=== PATIENT | female | born 1970 | race Caucasian/White ===

== ENCOUNTER 2019-02-21 22:31 | Inpatient (IN) | payer BC ==
--- OUTSIDE RECORDS SUMMARY | 2019-02-21 22:44 | XMS REPORT | Continuity of Care Document ---
:1970 External Reference #:[id number] Author Name Andrew Villatoro MD Address [address] [place] [address] Care Team Providers Name Role Phone LOGAN Acosta Care Team Information Predictive Maintenance Specialist Unavailable Payers Date Identification Numbers Payment Provider Subscriber Expires: Policy Number: [id number] Faheemus ALEGRIA Suzy Rojas Issac 2011 Group Name: [address] [address] [address] PayID: [id number] TRAVIS Solorzano [id number] Effective: 2011 Policy Number: [id number] Peter ALEGRIA Suzy Rojas Issac Group Name: [employer] [address] [address] [address] PayID: [id number] TRAVIS Solorzano [id number] Problems Active Problems Provider Date Obesity Malgorzata Sanches M.D. Onset: 10/13/2011 Family History Date Family Member(s) Observation Comments Father Hypertension Mother Hypothyroidism Paternal Grandfather 70's as of 06/27/2006 Paternal Grandfather due to CVA () Paternal Grandfather due to [place] () Maternal Grandfather Diabetes : (age 52 Years) Maternal Grandfather due to [place] Maternal Grandmother Hypothyroidism. 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 Diet Healthy, Well Balanced tends to eat better in the summer, lots of grilling Pets 1 cat Occupation bank currently working Occupation , works as banking services officer Tobacco Use Start: Unknown End: Former Cigarette Smoker Unknown ETOH Use Occasionally consumes alcohol Recreational Drug Use Never Used Drugs Allergies, Adverse Reactions, Alerts Active Allergies Reaction Severity Comments Date Penicillin 02/23/2006 Sulfa 06/27/2006 Clarithromycin 09/17/2016 Morphine Confusion Moderate 07/02/2018 Medications Active Medications SIG Qnty Indications Ordering Date Provider Metronidazole take 1 tablet by 30tabs K57.32 Andrew 02/02/2019 500mg mouth 3 times per day MD Irving Tablets for 10 days for diverticulitis Cipro take 1 tablet by 20tabs K57.32 Andrew 02/02/2019 500mg Tablets mouth every 12 hours MD Irving for 10 days for infection Fluticasone [place] Two Sprays In 16units [facility] R. 01/04/2019 Propionate Each Nostril Twice A PILAR Palmer-C 50mcg/Act Day For Allergies Suspension Montelukast Sodium Take 1 Tablet By 30tabs J30.9 Samia 07/03/2018 Mouth Once Daily Nina, 10mg Tablets Tricia Cohn Flonase use 2 sprays in each 16units J30.9 [facility] R. 11/03/2011 50mcg/Act nostril 2 times a day PILAR Palmer-C Suspension for allergies Zyrtec Allergy 1 by mouth every day Unknown 10mg Tablets Deblitane Take One Tablet By Unknown 0.35mg Mouth Every Day Tablets History Medications Deblitane Take One Tablet By 28tabs [facility] R. 11/04/2018 - 0.35mg Mouth Every Day as PILAR Palmer-C 11/05/2018 Tablets Directed Amoxicillin/Clavulana 1 tablet twice a 20tabs J01.90 Andrew 03/26/2018 - te Potassium day x 10 days. MD Irving 03/26/2018 875-125mg Tablets Doxycycline Hyclate 1 tab by mouth 20tabs J01.90 Andrew 03/26/2018 - twice a day MD Irving 07/02/2018 100mg Tablets Ventolin HFA 1-2 puffs every 8gm J06.9 Neil Carver 10/13/2017 - 4-6 hours as III, VOLUNTEER PATIENT REPRESENTATIVE-C 07/02/2018 108(90Base) mcg/Act needed for Aerosol sob/wheezing. Doxycycline 1 tab by mouth 20caps Andrew 11/20/2016 - Monohydrate twice a day for 10 MD Irving 10/13/2017 100mg days Capsules Cefuroxime Axetil one by mouth twice 20tabs Francia Hui, 09/17/2016 - 500mg a day for 10 days [facility] 11/20/2016 Tablets Clarithromycin 1 tab PO bid X 10 20tabs Francia Hui, 09/09/2016 - 500mg days [facility] 09/17/2016 Tablets Fluconazole 1 tablet by mouth 2tabs Francia Hui, 09/09/2016 - 150mg now, may repeat in [facility] 10/13/2017 Tablets 1 week if needed Clindamycin HCL 1 by mouth 4 times 40caps K04.0 Samia Wood 2015 - 150mg a day for 10 days Tricia Cohn 09/09/2016 Capsules Robitussin DM 5 milliliters by 150units Hollie Morales 11/07/2015 - mouth every 4 MD Irving 09/09/2016 100-10mg/5ML Syrup hours as needed Tesanishon Angy take 1 capsule by 30caps Hollie Morales 11/07/2015 - 100mg mouth 3 times per MD Irving 09/09/2016 Capsules day as needed for cough Azelastine HCL 2 sprays each 30ml 381.04 [facility] RMitesh 12/08/2013 - nostril twice [facility] 10/13/2017 137mcg/Patterson Solution daily for rhinitis Zyrtec-D bid Shawnti R. 12/05/2013 - Allergy/Congestion [facility] 07/02/2018 5-120mg Tablets ER 12HR Astepro 2 sprays in each 30ml 381.04 [facility] R. 12/05/2013 - 0.15% Solution nostril twice [facility] 12/08/2013 daily for allergies Ranitidine HCL Take One Tablet By 60tabs 530.81 [facility] R. 11/21/2013 - 150mg Mouth Twice A Day [facility] 11/20/2016 Tablets as Needed For Stomach Acid Diflucan 150mg by mouth 2tabs Samia Wood, 11/21/2013 - 150mg Tablets once, may repeat Lalit, R.DMitesh 11/20/2016 in one week if needed for yeast infection Cipro 1 pill po bid for 10tabs 599.0 [employer] Bailey 11/21/2013 - 250mg Tablets 5 days for urine DELANEY PalmerPAmbrocio 12/01/2013 infection Ciprofloxacin HCL 2 drops qid for QS 372.00 Francia Korina, 04/04/2013 - 0.3% 5-7 days [facility] 11/20/2016 Solution Lorena-Be take 1 tablet by 28tabs Mariam Bailey 08/01/2012 - 0.35mg Tablets mouth daily as Spencer [facility] 07/26/2018 directed Astelin one spray to each 1units 477.9 Malgorzata MMitesh 01/30/2012 - 137mcg/Patterson nostril daily Lailt Sanches 04/08/2012 Solution Singulair Take 1 Tablet By 30tabs J30.9 Samia Wood, 01/30/2012 - 10mg Tablets Mouth Once Daily Lalit R.DMitesh 07/03/2018 Patanol 1-2 drop each eye 1bottle 372.14 Mariam Bailey 11/03/2011 - 0.1% Solution 4 times daily if [facility]2012 needed for itchy/watery eyes Erlinda Allergy 1 po qd 30tabs 477.9 Mariam Bailey 11/03/2011 - 180mg DELANEY PalmerPAmbrocio 04/08/2012 Tablets Azithromycin take 2 tablets po 6tabs Malgorzata Byrnes 10/17/2011 - 250mg today and one Lalit Sanches 10/22/2011 Tablets tablet po daily days 2-5 Loratadine 1 po qd 30tabs 477.9 Malgorzata M. 10/13/2011 - 10mg Tablets Lalit Sanches 11/03/2011 Ciprofloxacin HCL 1 po bid 6tabs 599.0 Malgorzata Byrnes 06/19/2011 - 500mg Lalit Sanches 10/13/2011 Tablets Ergocalciferol 1 po twice weekly 8tabs Mariam R. 07/03/2009 - Tablets for vitamin d Spencer, VOLUNTEER PATIENT REPRESENTATIVE-C 08/02/2009 50,000Units deficiency, repeat Tablets level in 4 weeks Zithromax Tri-Slava 1 qd x 3 days december 3tabs 461.0 Stella A. 12/25/2008 - 500mg repeat after 10 Sarah, 06/15/2009 Tablets days if sx persist [facility] Nasonex two sprays in each 1units 461.0 Malgorzata M. 12/25/2008 - 50mcg/Act nares once daily Lalit Sanches 01/30/2012 Suspension Zanaflex 1 or two po at hs 40tabs Katrina Solano 12/29/2007 - 4mg Tablets prn muscle spasm Lalit Hughes 04/08/2012 Keflex 1 po tid for 14 52caps 461.0 Shawnti R. 10/01/2007 - 500mg Capsules days for sinusitis PILAR Palmer-C 06/15/2009 No Work no work due to 487.8 Shawnti R. 09/27/2007 - illness, december Spencer, VOLUNTEER PATIENT REPRESENTATIVE-C 06/15/2009 return when feeling better Micronor 1 po daily as 1Month Samia Wood, 05/25/2007 - 0.35mg marva Cohn R.DMitesh 10/13/2017 Micronor one daily to begin 1Month 388.70 Shawnti R. 06/22/2006 - 0.35mg Tablets after next menses PILAR Palmer-C 05/25/2007 Keflex one bid x 10 days 20tabs 782.1 Katrina Solano 06/22/2006 - 500mg Tablets Lalit Hughes 12/02/2006 Ciprofloxacin HCL 1 by mouth twice a Unknown - 500mg day for infection 07/26/2018 Tablets Metronidazole 1 tab by mouth Unknown - 500mg twice a day x 7 07/26/2018 Tablets days Immunizations CPT Code Status Date Vaccine Lot # [id number] Given 04/08/2012 Tdap (Adacel) [id number] Refused 07/26/2018 Influenza Virus Vaccine, Quadrivalent, 3 Yr > Quad , Preserv Free [id number] Refused 11/07/2015 Influenza Virus Vaccine, Quadrivalent, 3 Yr > Quad , Preserv Free Vital Signs Date Vital Result Comment 02/02/2019 9:42am Weight 216.00 lb Weight 97.978 kg BP Systolic 112 mmHg BP Diastolic 64 mmHg Heart Rate 80 /min Body Temperature 99.5 F Respiratory Rate 16 /min 11/05/2018 8:39am Weight 224.00 lb Weight 101.606 kg BP Systolic 110 mmHg BP Diastolic 60 mmHg Heart Rate 98 /min Body Temperature 98.9 F Respiratory Rate 16 /min Height 63.5 inches 5'3.50" BMI (Body Mass Index) 39.1 kg/m2 Last Menstrual Period 5967824 O2 % BldC Oximetry 97 % 07/26/2018 4:50pm Weight 220.00 lb Weight 99.792 kg BP Systolic 110 mmHg BP Diastolic 81 mmHg Heart Rate 88 /min Body Temperature 99.0 F Respiratory Rate 16 /min 07/02/2018 1:55pm Weight 223.00 lb Weight 101.153 kg BP Systolic 124 mmHg BP Diastolic 76 mmHg Heart Rate 100 /min Body Temperature 99.6 F Respiratory Rate 16 /min Height 63 inches 5'3" BMI (Body Mass Index) 39.5 kg/m2 Last Menstrual Period 4332004 O2 % BldC Oximetry 96 % 03/26/2018 3:52pm Weight 224.00 lb Weight 101.606 kg BP Systolic 100 mmHg BP Diastolic 72 mmHg Heart Rate 88 /min Body Temperature 99.0 F Respiratory Rate 16 /min O2 % BldC Oximetry 97 % 10/13/2017 10:36am Weight 219.00 lb Weight 99.338 kg BP Systolic 126 mmHg BP Diastolic 82 mmHg Heart Rate 97 /min Body Temperature 99.1 F ibuprofen around 10am Respiratory Rate 18 /min Height 62 inches 5'2" BMI (Body Mass Index) 40.1 kg/m2 O2 % BldC Oximetry 98 % 11/20/2016 10:19am Weight 227.00 lb Weight 102.967 kg BP Systolic 126 mmHg BP Diastolic 78 mmHg Heart Rate 106 /min Body Temperature 96.2 F Respiratory Rate 18 /min O2 % BldC Oximetry 98 % 09/09/2016 3:03pm Weight 226.00 lb Weight 102.514 kg BP Systolic 111 mmHg BP Diastolic 80 mmHg Heart Rate 104 /min Body Temperature 100.0 F O2 % BldC Oximetry 98 % 02/09/2016 9:29am Weight 222.00 lb Weight 100.699 kg BP Systolic 112 mmHg BP Diastolic 64 mmHg Heart Rate 84 /min Body Temperature 98.7 F 11/07/2015 3:35pm Weight 222.00 lb Weight 100.699 kg BP Systolic 116 mmHg BP Diastolic 86 mmHg Heart Rate 106 /min Body Temperature 100.0 F O2 % BldC Oximetry 98 % Room air 10/09/2014 3:20pm Weight 220.00 lb Weight 99.792 kg BP Systolic 110 mmHg BP Diastolic 70 mmHg Heart Rate 86 /min Body Temperature 99.2 F 12/05/2013 4:44pm Weight 216.00 lb Weight 97.978 kg BP Systolic 112 mmHg BP Diastolic 70 mmHg Heart Rate 88 /min Body Temperature 98.6 F 11/21/2013 4:38pm Weight 215.00 lb Weight 97.524 kg BP Systolic 110 mmHg BP Diastolic 78 mmHg Heart Rate 72 /min Body Temperature 99.4 F Height 63.5 inches 5'3.50" BMI (Body Mass Index) 37.5 kg/m2 04/04/2013 4:34pm Weight 209.00 lb Weight 94.802 kg BP Systolic 120 mmHg BP Diastolic 80 mmHg Heart Rate 108 /min Body Temperature 99.1 F Right Visual Acuity Distance 20/20 Left Visual Acuity Distance 20/30 Both Visual Acuity Distance 20/25 07/12/2012 3:06pm Weight 207.00 lb Weight 93.895 kg BP Systolic 104 mmHg BP Diastolic 62 mmHg Heart Rate 80 /min Body Temperature 98.8 F 04/08/2012 9:05am Weight 201.00 lb Weight 91.174 kg BP Systolic 118 mmHg BP Diastolic 74 mmHg Heart Rate 84 /min Height 63.5 inches 5'3.50" BMI (Body Mass Index) 35.0 kg/m2 01/30/2012 9:17am Weight 209.00 lb Weight 94.802 kg BP Systolic 106 mmHg BP Diastolic 80 mmHg Heart Rate 84 /min Body Temperature 99.4 F O2 % BldC Oximetry 98 % 11/03/2011 2:46pm Weight 208.00 lb Weight 94.349 kg BP Systolic 120 mmHg BP Diastolic 80 mmHg Heart Rate 80 /min Body Temperature 98.9 F 10/13/2011 1:51pm Weight 208.00 lb Weight 94.349 kg BP Systolic 96 mmHg BP Diastolic 60 mmHg Heart Rate 80 /min Body Temperature 98.2 F 06/19/2011 2:57pm Weight 203.00 lb Weight 92.081 kg BP Systolic 102 mmHg BP Diastolic 64 mmHg Heart Rate 80 /min Body Temperature 99.6 F Height 63.5 inches 5'3.50" BMI (Body Mass Index) 35.4 kg/m2 06/15/2009 8:04am Weight 198.00 lb Weight 89.813 kg BP Systolic 100 mmHg BP Diastolic 70 mmHg Heart Rate 80 /min Height 64 inches 5'4" BMI (Body Mass Index) 34.0 kg/m2 Last Menstrual Period [id number] 12/25/2008 4:17pm Weight 197.00 lb Weight 89.359 kg BP Systolic 110 mmHg BP Diastolic 70 mmHg Heart Rate 72 /min Body Temperature 98.1 F 02/21/2008 4:13pm Weight 194.00 lb Weight 87.998 kg BP Systolic 124 mmHg BP Diastolic 84 mmHg Heart Rate 80 /min Body Temperature 98.5 F Height 64.25 inches 5'4.25" BMI (Body Mass Index) 33.0 kg/m2 12/29/2007 11:51am Weight 204.00 lb Weight 92.534 kg BP Systolic 118 mmHg BP Diastolic 80 mmHg Heart Rate 80 /min Respiratory Rate 18 /min Height 64.25 inches 5'4.25" BMI (Body Mass Index) 34.7 kg/m2 10/01/2007 11:18am Weight 192.00 lb Weight 87.091 kg BP Systolic 110 mmHg BP Diastolic 60 mmHg Body Temperature 98.7 F Oral Height 64.25 inches 5'4.25" BMI (Body Mass Index) 32.7 kg/m2 09/27/2007 12:14pm Weight 196.00 lb Weight 88.906 kg BP Systolic 98 mmHg BP Diastolic 70 mmHg Heart Rate 110 /min Body Temperature 99.3 F Height 64.25 inches 5'4.25" BMI (Body Mass Index) 33.4 kg/m2 08/03/2007 8:04am Weight 193.00 lb Weight 87.545 kg BP Systolic 100 mmHg BP Diastolic 58 mmHg Heart Rate 80 /min Height 64.25 inches 5'4.25" BMI (Body Mass Index) 32.9 kg/m2 Last Menstrual Period [id number] 06/22/2006 12:08pm Weight 189.00 lb Weight 85.730 kg BP Systolic 120 mmHg BP Diastolic 70 mmHg Heart Rate 68 /min Height 64 inches 5'4" BMI (Body Mass Index) 32.4 kg/m2 Last Menstrual Period 2263299 02/23/2006 2:28pm Weight 189.00 lb Weight 85.730 kg BP Systolic 110 mmHg BP Diastolic 60 mmHg Heart Rate 80 /min Respiratory Rate 18 /min Height 64 inches 5'4" BMI (Body Mass Index) 32.4 kg/m2 Results Test Date Facility Test Result H/L Range Note Laboratory test [facility] Cytology SEE RESULT 1 finding 9 [phone] BELOW Laboratory test [facility] Hemoglobin A1c 4.8 % N 4.0-5.6 2 finding 9 [phone] (Glyco HGB) Lipid Profile [facility] Triglycerides 152 mg/dL 3 (Trig/Chol/HDL) 9 [phone] Cholesterol 212 mg/dL 4 HDL Cholesterol 48.8 mg/dL 5 LDL Cholesterol 133 mg/dL 6 CBC Auto Diff 11/05/2018 [facility] White Blood 9.8 10^3/uL N 3.5-10.8 [phone] Count Red Blood Count 4.66 10^6/uL N 3.70-4.87 Hemoglobin 14.2 g/dL N 12.0-16.0 Hematocrit 42 % High 33-41 Mean Corpuscular Volume 91 fL N 80-97 Mean Corpuscular Hemoglobin 30 pg N 27-31 Mean Corpuscular HGB Conc 34 g/dL N 31-36 Red Cell Distribution Width 14 % N 10.5-15 Platelet Count 334 10^3/uL N 150-450 Mean Platelet Volume 8.6 fL N 7.4-10.4 Abs Neutrophils 6.5 10^3/uL N 1.5-7.7 Abs Lymphocytes 2.3 10^3/uL N 1.0-4.8 Abs Monocytes 0.5 10^3/uL N 0-0.8 Abs Eosinophils 0.4 10^3/uL N 0-0.6 Abs Basophils 0.1 10^3/uL N 0-0.2 Abs Nucleated RBC 0 10^3/uL Granulocyte % 66.4 % Lymphocyte % 23.1 % Monocyte % 4.7 % Eosinophil % 4.6 % Basophil % 1.2 % Nucleated Red Blood Cells % 0.1 Comp Metabolic Panel 11/05/2018 [facility] Sodium 137 mmol/L N 135-145 [phone] Potassium 4.4 mmol/L N 3.5-5.0 Chloride 106 mmol/L N 101-111 Co2 Carbon Dioxide 22 mmol/L N 22-32 Anion Gap 9 mmol/L N 2-11 Glucose 88 mg/dL N 70-100 Blood Urea Nitrogen 13 mg/dL N 6-24 Creatinine 0.75 mg/dL N 0.51-0.95 BUN/Creatinine Ratio 17.3 N 8-20 Calcium 9.7 mg/dL N 8.6-10.3 Total Protein 6.9 g/dL N 6.4-8.9 Albumin 4.4 g/dL N 3.2-5.2 Globulin 2.5 g/dL N 2-4 Albumin/Globulin Ratio 1.8 N 1-3 Total Bilirubin 0.40 mg/dL N 0.2-1.0 Alkaline Phosphatase 77 U/L N 34-104 Alt 20 U/L N 7-52 Ast 13 U/L N 13-39 Egfr Non- 82.1 >60 Egfr 99.4 >60 7 CBC Auto 06/30/2018 [facility] White Blood 11.3 10^3/ uL High 3.5-10.8 Diff [phone] Count Red Blood Count 4.54 10^6/uL N 4.00-5.40 Hemoglobin 13.8 g/dL N 12.0-16.0 Hematocrit 41 % N 35-47 Mean Corpuscular Volume 90 fL N 80-97 Mean Corpuscular Hemoglobin 31 pg N 27-31 Mean Corpuscular HGB Conc 34 g/dL N 31-36 Red Cell Distribution Width 13 % N 10.5-15 Platelet Count 256 10^3/uL N 150-450 Mean Platelet Volume 8.5 fL N 7.4-10.4 Abs Neutrophils 8.5 10^3/uL High 1.5-7.7 Abs Lymphocytes 1.7 10^3/uL N 1.0-4.8 Abs Monocytes 0.7 10^3/uL N 0-0.8 Abs Eosinophils 0.4 10^3/uL N 0-0.6 Abs Basophils 0.1 10^3/uL N 0-0.2 Abs Nucleated RBC 0 10^3/uL Granulocyte % 75.0 % N 38-83 Lymphocyte % 15.0 % Low 25-47 Monocyte % 5.9 % N 0-7 Eosinophil % 3.1 % N 0-6 Basophil % 1.0 % N 0-2 Nucleated Red Blood Cells % 0 Inr/Protime 06/30/2018 [facility] Inr 0.83 N 0.77- 1.02 [phone] Laboratory test 06/30/2018 [facility] Partial 29.3 seconds N 26.0-36.3 finding [phone] Thrombo Time PTT Comp Metabolic 06/30/2018 [facility] Sodium 136 mmol/ L N 135-145 Panel [phone] Potassium 3.7 mmol/L N 3.5-5.0 Chloride 108 mmol/L N 101-111 Co2 Carbon Dioxide 20 mmol/L Low 22-32 Anion Gap 8 mmol/L N 2-11 Glucose 115 mg/dL High 70-100 Blood Urea Nitrogen 16 mg/dL N 6-24 Creatinine 0.83 mg/dL N 0.51-0.95 BUN/Creatinine Ratio 19.3 N 8-20 Calcium 8.9 mg/dL N 8.6-10.3 Total Protein 6.4 g/dL N 6.4-8.9 Albumin 4.2 g/dL N 3.2-5.2 Globulin 2.2 g/dL N 2-4 Albumin/Globulin Ratio 1.9 N 1-3 Total Bilirubin 0.50 mg/dL N 0.2-1.0 Alkaline Phosphatase 86 U/L N 34-104 Alt 18 U/L N 7-52 Ast 12 U/L Low 13-39 Egfr Non- 73.1 >60 Egfr 88.4 >60 8 Laboratory test 06/30/2018 [facility] Magnesium 2.0 mg/dL N 1.9-2.7 finding [phone] Amylase 25 U/L Low 29-103 Lipase 40 U/L N 11.0-82.0 C Reactive Protein 14.91 mg/L High <8.01 HCG 0.75 mIU/mL 9 Lactic Acid 0.9 mmol/L N 0.5-2.0 10 Urinalysis Profile 06/30/2018 [facility] Urine Color Straw [phone] Urine Appearance Clear Urine Specific [place] 1.003 Low 1.010-1.030 Urine pH 5.0 N 5-9 Urine Urobilinogen Negative Negative Urine Ketones Negative Negative Urine Protein Negative Negative Urine Leukocytes Negative Negative Urine Blood Negative Negative Urine Nitrite Negative Negative Urine Bilirubin Negative Negative Urine Glucose Negative Negative Flu Test A, B, Or A & B,Binaxn 11/07/2015 In House Lab Influenza A Antigen NEG (607)- - Influenza B Antigen NEG Urine Culture And 10/09/2014 [facility] Urine Culture (SEE NOTE) 11 Sensitivities [phone] Urine DIP 10/09/2014 In House Lab Specific 1.020 1.01- (607)- - [place] 1.02 Urine pH 5 5-6 Leukocytes TRACE Neg Urine Nitrites NEG Neg Total Protein, Urine NEG Neg Urine Glucose NORM Norm Urine Ketones NEG Neg Urobilinogen ORM Norm Urine Bilirubin NEG Neg Urine Blood TRACE Neg Urine Culture And 11/21/2013 [facility] Urine Culture (SEE NOTE) 12 Sensitivities [phone] Urine DIP 11/21/2013 In House Lab Specific 1.015 1.01- (607)- - [place] 1.02 Urine pH 5 5-6 Leukocytes + Neg Urine Nitrites NEG Neg Total Protein, Urine NEG Neg Urine Glucose NORM Norm Urine Ketones NEG Neg Urobilinogen NORM Norm Urine Bilirubin NEG Neg Urine Blood NEG Neg Laboratory test 07/12/2012 In House Lab Strep Screen NEG Neg finding (607)- - Laboratory test 04/08/2012 [facility] Cytology ------ ----- 13 finding [phone] ----- <SEE NOTE> CBC Auto Diff 04/08/2012 [facility] White Blood 9.4 CUMM 4.8-10.8 [phone] Count Red Cell Count 4.43 CUMM 4.2-5.4 Hemoglobin 14.4 g/dL 12.0-16.0 Hematocrit 42 % 35-47 Mean Corpuscular Volume 95 um3 79-97 Mean Corpuscular Hemoglob 33 pg High 27-31 Mean Corpuscular HGB Cone 34 g/dL 32-36 Redcell Distribution WDTH 13 % 10.5-15 Platelet Count 271 CUMM 150-450 Mean Platelet Volume 9.5 um3 7.4-10.4 Gran % 65.2 % 38-83 Lymph % 24.7 % 20-45 Mononuclear % 6.2 % 1-9 Eosinophil % 2.9 % 0-6 Basophil % 1.0 % 0-2 Abs Lymphs 2.3 1.0-4.8 Abs Mononuclear 0.6 0-0.8 Absolute Neutrophil Count 6.2 1.5-7.7 Abs Eosinophils 0.3 0-0.6 Abs Basophils 0.1 0-0.2 Comp Metabolic Panel 04/08/2012 [facility] Sodium 138 mmol/L 135-145 [phone] Potassium 4.5 mmol/L 3.5-5.0 Chloride 109 mmol/L 101-111 Co2 (Carbon Dioxide) 24.0 mmol/L 22-32 Anion Gap 5.0 mmol/L 2-11 14 Glucose 90 mg/dL 70-100 BUN 11 mg/dL 6-24 Creatinine 0.8 mg/dL 0.50-1.40 One Over Creatinine 1.25 BUN/Creatinine Ratio 13.8 8-20 Calcium 9.5 mg/dL 8.1-9.9 Total Protein 6.1 GM/DL Low 6.2-8.1 Albumin 4.1 GM/DL 3.6-5.4 Globulin 2.0 GM/DL 2-4 Albumin/Globulin Ratio 2.1 1-3 Bilirubin Total 0.9 mg/dL 0.4-1.5 15 Alkaline Phosphatase 80 U/L 30-110 Alt (SGPT) 32 U/L 14-54 Ast (Sgot) 23 U/L 12-42 eGFR Non- 78.7 > 60 eGFR 101.2 > 60 16 Lipid Profile 04/08/2012 [facility] Triglyceride 146 mg/dL 40-200 (Trig/Chol/HDL) [phone] Cholesterol 194 mg/dL Less Than 200 17 High Density Lipoprotein 39 mg/dL Low 40-60 18 Cholesterol/HDL Ratio 4.97 AVERAGE High 1-4.44 Low Density Lipoprotein 126 mg/dL High Less Than 100 19 Laboratory test 04/08/2012 [facility] TSH 1.21 MIU/ ML 0.34-5.60 finding [phone] Urine DIP 04/08/2012 In House Lab Leukocytes NEG Neg (607)- - Urine Nitrites NEG Neg Urine pH 5 5-6 Total Protein, Urine NEG Neg Urine Glucose NORM Norm Urine Ketones NEG Neg Urobilinogen NORM Norm Urine Bilirubin NEG Neg Urine Blood NEG Neg Specific [place] NA Low 1.01-1.02 Urine DIP 06/19/2011 In House Lab Leukocytes 1+ High Neg (607)- - Urine Nitrites pos Neg Urine pH 5 5-6 Total Protein, Urine neg Neg Urine Glucose norm Norm Urine Ketones neg Neg Urobilinogen norm Norm Urine Bilirubin neg Neg Urine Blood neg Neg Specific [place] na Low 1.01-1.02 Lipid Profile 06/15/2009 [facility] Triglyceride 136 mg/dL 40-200 (Trig/Chol/HDL) [phone] Cholesterol 208 mg/dL High Less Than 200 20 High Density Lipoprotein 44 mg/dL 40-60 21 Cholesterol/HDL Ratio 4.73 AVERAGE High 1-4.44 Low Density Lipoprotein 137 mg/dL High Less Than 100 22 Laboratory test 06/15/2009 [facility] TSH 1.58 MIU/ ML 0.34-5.60 finding [phone] Vitamin D.25 06/15/2009 [facility] 25-Hydroxy <4.0 ng /mL () Hydroxy [phone] Vitamin D2 25-Hydroxy Vitamin D3 24 ng/mL () 25-Hydroxy Vitamin D Total 24 ng/mL Abnormal () 23 Comp Metabolic Panel 06/15/2009 [facility] Sodium 138 mmol/L 135-145 [phone] Potassium 4.6 mmol/L 3.5-5.0 Chloride 106 mmol/L 101-111 Co2 (Carbon Dioxide) 25.0 mmol/L 22-32 Anion Gap 7.0 mmol/L 2-11 24 Glucose 82 mg/dL 70-100 25 BUN 13 mg/dL 6-24 Creatinine 0.80 mg/dL 0.50-1.40 One Over Creatinine 1.20 BUN/Creatinine Ratio 16.3 8-20 Calcium 9.3 mg/dL 8.1-9.9 26 Total Protein 5.7 GM/DL Low 6.2-8.1 Albumin 3.8 GM/DL 3.6-5.4 Globulin 1.9 GM/DL Low 2-4 Albumin/Globulin Ratio 2.0 1-3 Bilirubin Total 0.5 mg/dL 0.4-1.5 27 Alkaline Phosphatase 75 U/L 30-110 Alt (SGPT) 23 U/L 14-54 Ast (Sgot) 17 U/L 12-42 eGFR Non- 84.4 > 60 eGFR 102.2 > 60 28 Laboratory test 06/15/2009 [facility] Cytology ------ 29 finding [phone] <SEE NOTE> Urine DIP 06/15/2009 In House Lab Leukocytes NEG Neg (607)- - Urine Nitrites NEG Neg Urine pH 5 5-6 Total Protein, Urine NEG Neg Urine Glucose NORM Norm Urine Ketones NEG Neg Urobilinogen NORM Norm Urine Bilirubin NEG Neg Urine Blood NEG Neg Specific [place] N/A Low 1.01-1.02 CBC With Manual 06/15/2009 [facility] White Blood 9.9 CUMM 4.8-10.8 Diff [phone] Count Red Cell Count 4.46 CUMM 4.2-5.4 Hemoglobin 14.3 g/dL 12.0-16.0 Hematocrit 42 % 35-47 Mean Corpuscular Volume 95 um3 79-97 Mean Corpuscular Hemoglob 32 pg High 27-31 Mean Corpuscular HGB Cone 34 g/dL 32-36 Redcell Distribution WDTH 13 % 10.5-15 Platelet Count 239 CUMM 150-450 Mean Platelet Volume 8.7 um3 7.4-10.4 Polysegmented Neutrophil 74 % 38-83 Lymphocyte 24 % Low 25-47 Monocyte 2 % 0-13 Absolute Neutrophil Count 7.3 Anisocytosis SLIGHT Laboratory test 09/27/2007 In House Lab Flu Test A&B, POS finding (607)- - [facility] Laboratory test 08/03/2007 [facility] Cytology ------ ----- 30 finding [phone] ----- <SEE NOTE> CBC With 07/26/2007 [facility] Laboratory White Blood 8.3 CUMM 4.8-10. Electronic Diff [phone] Count 8 Abs Basophils 0.1 0-0.2 Abs Eosinophils 0.2 0-0.6 Absolute Neutrophil Count 4.9 1.5-7.7 Abs Lymphs 2.6 1.0-4.8 Abs Mononuclear 0.5 0-0.8 Basophil % 0.8 % 0-2 Hematocrit 41 % 35-47 Hemoglobin 13.8 g/dL 12.0-16.0 Eosinophil % 3.0 % 0-6 Gran % 58.6 % 38-83 Lymph % 31.1 % 20-45 Mean Corpuscular HGB Cone 34 g/dL 32-36 Mean Corpuscular Hemoglob 32 pg High 27-31 Mean Corpuscular Volume 96 um3 79-97 Mean Platelet Volume 9.0 um3 7.4-10.4 Mononuclear % 6.5 % 1-9 Platelet Count 298 CUMM 150-450 Red Cell Count 4.24 CUMM 4.2-5.4 Redcell Distribution WDTH 13 % 10.5-15 Comp Metabolic 07/26/2007 [facility] One Over Creatinine 1.00 Panel [phone] Anion Gap 5.0 mmol/L 2-11 31 Albumin/Globulin Ratio 1.5 1-3 Albumin 3.8 GM/DL 3.6-5.4 Alkaline Phosphatase 82 U/L 30-110 Alt (SGPT) 23 U/L 14-54 Ast (Sgot) 17 U/L 12-42 BUN 14 mg/dL 6-24 Calcium 9.1 mg/dL 8.7-10.2 Chloride 108 mmol/L 101-111 Co2 (Carbon Dioxide) 26.0 mmol/L 22-32 Globulin 2.6 GM/DL 2-4 Glucose 90 mg/dL 70-105 Potassium 4.6 mmol/L 3.5-5.0 Sodium 139 mmol/L 135-145 Bilirubin Total 0.7 mg/dL 0.4-1.5 Total Protein 6.4 GM/DL 6.2-8.1 BUN/Creatinine Ratio 14.0 8-20 Creatinine 1.0 mg/dL 0.5-1.4 Lipid Profile 07/26/2007 [facility] Cholesterol/HDL 5.00 High 1-4.44 (Trig/Chol/HDL) [phone] Ratio AVERAGE Cholesterol 200 mg/dL Less Than 200 32 Triglyceride 147 mg/dL 40-200 High Density Lipoprotein 40 mg/dL 40-60 Low Density Lipoprotein 131 mg/dL High Less Than 100 33 Gcchlu 06/22/2006 [facility] CHL On Urine NEGATIVE Negative 34 [phone] GC On Urine NEGATIVE Negative 35 Urine DIP 06/22/2006 In House Lab Leukocytes NEG Neg (607)- - Urine Nitrites NEG Neg Urine pH 5 5-6 Total Protein, Urine NEG Neg Urine Glucose NORM Norm Urine Ketones NEG Neg Urobilinogen NORM Norm Urine Bilirubin NEG Neg Urine Blood NEG Neg Specific [place] N/A Low 1.01-1.02 Laboratory test 06/22/2006 [facility] Cytology ------ <SEE 36 finding [phone] NOTE> 1 SEE RESULT BELOW Name: SUZY DAVENPORT : [address]: Mariam Palmer NP Acct: [id number] Unit: [id number] AGE: 48 Location: [facility] Re11/05/18 SEX: F Status: REG REF SPEC: [id number] NATHANIEL: 11/05/18-[address]: Mariam Palmer CLASSIFIER TENDER REQ: [id number] RECD: 11/05/18123 STATUS: SOUT _ ORDERED: TP IMAGE ANALYS, HPV/Thin Prep, HPV 16/18 GENE COMMENTS: [id number] Negative for Intraepithelial lesion or Malignancy Date Time Test Result Flag (u) Normal Range 11/05/18 1034 @ HPV RNA RFLX GE POSITIVE An Negative @ @ The high-risk HPV types detected by the assay include: 16, @ 18, 31, 33, 35, 39, 45, 51, 52, 56, 58, 59, 66, and 68. HPV GENOTYPE RESULTS Date Time Test Result Flag (u) Normal Range 11/05/18 1034 @ HPV 16 Genotype Negative Negative @ HPV 18/45 GT Negative Negative A. Ectocervical/Endocervical Specimen Adequacy: Satisfactory of evaluation Transformation zone component not identified Patient Information: HPV: High risk HPV RNA testing regardless of pap results. HPV 16/18 Genotype Reflex Actual Specimen Date: 11/05/18 Last Menstrual Date: 10/22/18 Spec Date if unknown: unknown Signed by and Reported on: JAMES Mcdonough(ASCP) 130 This Pap test was evaluated with the assistance of the edupristinePrep Test Imaging System. Due to cytologic findings at the gm video microscope, comprehensive manual rescreening by a Clinical Specialist may be required. The Pap Smear is a screening test designed to aid in the detection of premalignant and malignant conditions of the uterine cervix. It is not a diagnostic procedure and should not be used as the sole means of detecting cervical cancer. Both false- positive and false- negative reports do occur. Depending on your risk status, a Pap smear should be obtained and evaluated every 1-3 years. END OF REPORT DEPARTMENT OF PATHOLOGY, [address] [place] [address] Ernie Darling M.D. Director [facility] # [id number] 2 Therapeutic target for the treatment of diabetes mellitus patients is <7% HBA1C, and in selective patients <6.0%. Please refer to [place] Diabetes Association diabetic care guidelines for further information. 3 Desirable: <150 Borderline High: 150-199 High: 200-499 Very High: >500 4 Desirable: <200 Borderline High: 200-239 High: >239 5 Low: <40 Desirable: 40-60 High: >60 6 Desirable: <100 Near Optimal: 100-129 Borderline High: 130-159 High: 160-189 Very High: >189 7 Because ethnic data is not always readily available, this report includes an eGFR for both -Americans and non- Americans. The National Kidney Disease Education Program (NKDEP) does not endorse the use of the MDRD equation for patients that are not between the ages of 18 and 70, are , have extremes of body size, muscle mass, or nutritional status, or are non- or non-. According to the National Kidney Foundation, irrespective of diagnosis, the stage of the disease is based on the level of kidney function: Stage Description GFR(mL/min/1.73 m(2)) 1 Kidney damage with normal or decreased GFR 90 2 Kidney damage with mild decrease in GFR 60-89 3 Moderate decrease in GFR 30-59 4 Severe decrease in GFR 15-29 5 Kidney failure <15 (or dialysis) 8 Because ethnic data is not always readily available, this report includes an eGFR for both -Americans and non- Americans. The National Kidney Disease Education Program (NKDEP) does not endorse the use of the MDRD equation for patients that are not between the ages of 18 and 70, are , have extremes of body size, muscle mass, or nutritional status, or are non- or non-. According to the National Kidney Foundation, irrespective of diagnosis, the stage of the disease is based on the level of kidney function: Stage Description GFR(mL/min/1.73 m(2)) 1 Kidney damage with normal or decreased GFR 90 2 Kidney damage with mild decrease in GFR 60-89 3 Moderate decrease in GFR 30-59 4 Severe decrease in GFR 15-29 5 Kidney failure <15 (or dialysis) 9 <5.0 Negative 5.0 - 25.0 Indeterminate (Repeat testing recommended after 72 hours) >25.0 Positive Perimenopausal women can display HCG levels of up to 20 mIU/mL 10 [facility] Severe Sepsis and Septic Shock Management Bundle Measure requires all lactic acids initially measuring >2.0 mmol/L be repeated. 11 RUN DATE: 10/11/14 [facility] LAB LIVE PAGE 1 RUN TIME: [address] [place] [address] Specimen Inquiry Name: SUZY DAVENPORT : [address]: Mariam Palmer NP Acct: [id number] Unit: [id number] AGE: 44 Location: [facility] Re10/09/14 SEX: F Status: REG REF SPEC: [id number] NATHANIEL: 10/09/14-1530 [facility] [address]: Mariam Palmer NP REQ: [id number] RECD: 10/09/14 STATUS: COMP _ SOURCE: URINE SPDESC: ORDERED: Urine Culture QUERIES: Provider Requisition # [id number] Procedure Result Verified Site Urine Culture Final 10/11/14- 1046 ML Organism 1 NORMAL NEHA Champlain Count 1-10,000 (Few) CFU/ML END OF REPORT * ML=Testing performed at Main Lab DEPARTMENT OF PATHOLOGY, [facility] [employer] [place], [place] [address] Ernie Darling M.D. Director [facility] # [id number] 12 RUN DATE: 11/23/13 [facility] LAB LIVE PAGE 1 RUN TIME: 1234 [facility] [employer] [place], [place] [address] Specimen Inquiry Name: SUZY DAVENPORT : [address]: Mariam Palmer NP Acct: [id number] Unit: [id number] AGE: 43 Location: [facility] Re11/21/13 SEX: F Status: REG REF SPEC: [id number] NATHANIEL: 11/21/[address]: Mariam Palmer NP REQ: [id number] RECD: 11/21/13 STATUS: COMP _ SOURCE: URINE SPDESC: ORDERED: Urine Culture QUERIES: Med[employer] Number [id number] Procedure Result Verified Site Urine Culture Final 11/23/13- 1234 ML Organism 1 NORMAL NEHA Champlain Count 10-25,000 (Moderate) CFU/ML END OF REPORT * ML=Testing performed at Main Lab DEPARTMENT OF PATHOLOGY, [address] [place] [address] Ernie Darling M.D. Director [facility] Permit #[id number] ---- RUN DATE: 04/09/12 [facility] NMI LIVE PAGE 1 RUN TIME: 1531 Specimen Inquiry RUN USER: INTERFACE -- Name: SUZY DAVENPORT Accnic#: [id number] Status: REG REF Re04/08/12 Age/Sex: 41/F Unit#: [id number] Location: [facility] : [birth year] -- Specimen: [id number] SOUT Spec Date:04/08/12-[address]: Mariam Cardenas CLASSIFIER TENDER Spec Type: CYTOLOGY Received:04/09/12-0849 Copies to: SOURCE ECTOCERVICAL/ENDOCERVICAL Thin Prep with Reflex HPV Test PATIENT INFORMATION ACTUAL COLLECTION DATE: 04/08/12 DATE OF PRIOR SPECIMEN: 06/15/09 ADEQUACY OF SPECIMEN Satisfactory for evaluation * Transformation zone component identified * DIAGNOSIS NEGATIVE FOR INTRAEPITHELIAL LESION OR MALIGNANCY * This Pap test was evaluated with the assistance of the edupristinePrep Pap Test Imaging System. The Pap Smear is a screening test designed to aid in the detection of premalign ant and malignant conditions of the uterine cervix. It is not a diagnostic procedure a nd should not be used as the sole means of detecting cervical cancer. Both false- positiv e and false-negative reports do occur. Depending on your risk status, a Pap smear ibrahima uld be obtained and evaluated every one to three years. Initial evaluation performed by Kate LEVINE([facility]) 04/09/12 Final Interpretation electronically signed by: Kate LEVINE([facility]) 04/09/12 1531 -- -- DEPARTMENT OF PATHOLOGY, [address] [place] [address] [facility] Permit #[id number] Ernie Darling M.D. Director Horacio Cerna M.D. Paste Worker Dir mayra -- 14 Anion gap measurement may be of limited value in the presence of any alkalosis, especially in a combined acid base disorder. . 15 A metabolite of Naproxen, O-desmethylnaproxen, has been shown to interfere with the Jendrassik-Luna method for measuring total bilirubin. Samples from patients who have taken Naproxen have shown spurious elevation in total bilirubin levels. 16 Because ethnic data is not always readily available, this report includes an eGFR for both -Americans and non- Americans. The National Kidney Disease Education Program (NKDEP) does not endorse the use of the MDRD equation for patients that are not between the ages of 18 and 70, are , have extremes of body size, muscle mass, or nutritional status, or are non- or non-. According to the National Kidney Foundation, irrespective of diagnosis, the stage of the disease is based on the level of kidney function: Stage Description GFR(mL/min/1.73 m(2)) 1 Kidney damage with normal or decreased GFR 90 2 Kidney damage with mild decrease in GFR 60-89 3 Moderate decrease in GFR 30-59 4 Severe decrease in GFR 15-29 5 Kidney failure <15 (or dialysis) 17 CHOLESTEROL INTERPRETATION: Desirable: Less than 200 MG/DL Borderline-High Risk: 200-239 MG/DL High-Risk: 240 MG/DL and over 18 HDL INTERPRETATION: Undesirable: High Risk: Less than 40 MG/DL Desirable: Low Risk: Greater than 60 MG/DL 19 LDL INTERPRETATION: Low Risk Optimal Level: LDL Less than 100 MG/DL Near or Above Optimal: LDL 100-129 MG/DL Borderline High Risk: LDL 130-159 MG/DL High Risk: LDL 160-189 MG/DL Very High Risk: LDL Greater than 189 MG/DL 20 CHOLESTEROL INTERPRETATION: Desirable: Less than 200 MG/DL Borderline-High Risk: 200-239 MG/DL High-Risk: 240 MG/DL and over 21 HDL INTERPRETATION: Undesirable: High Risk: Less than 40 MG/DL Desirable: Low Risk: Greater than 60 MG/DL 22 LDL INTERPRETATION: Low Risk Optimal Level: LDL Less than 100 MG/DL Near or Above Optimal: LDL 100-129 MG/DL Borderline High Risk: LDL 130-159 MG/DL High Risk: LDL 160-189 MG/DL Very High Risk: LDL Greater than 189 MG/DL 23 Interpretation: 10-24 (mild to moderate deficiency) -- REFERENCE VALUE -- 25-HYDROXY D TOTAL (D2+D3) Optimum levels in the normal population are 25-80 Test Performed by: [facility] Dpt of Lab Med and Pathology [address] [place] [address] Butter Maker: Alexander Martinez III, M.D. 24 Anion gap measurement may be of limited value in the presence of any alkalosis, especially in a combined acid base disorder. . 25 Note change in reference range as of 04/06/08. The change was based on recommendations from the [place] Diabetes Association. 26 Please note change in reference range effective 08 . 27 A metabolite of Naproxen, O-desmethylnaproxen, has been shown to interfere with the Jendrassik-Luna method for measuring total bilirubin. Samples from patients who have taken Naproxen have shown spurious elevation in total bilirubin levels. 28 Because ethnic data is not always readily available, this report includes an eGFR for both -Americans and non- Americans. The National Kidney Disease Education Program (NKDEP) does not endorse the use of the MDRD equation for patients that are not between the ages of 18 and 70, are , have extremes of body size, muscle mass, or nutritional status, or are non- or non-. According to the National Kidney Foundation, irrespective of diagnosis, the stage of the disease is based on the level of kidney function: Stage Description GFR(mL/min/1.73 m(2)) 1 Kidney damage with normal or decreased GFR 90 2 Kidney damage with mild decrease in GFR 60-89 3 Moderate decrease in GFR 30-59 4 Severe decrease in GFR 15-29 5 Kidney failure <15 (or dialysis) 29 ---- RUN DATE: 06/19/09 [facility] NMI LIVE PAGE 1 RUN TIME: 804 Specimen Inquiry RUN USER: INTERFACE -- Name: SUZY DAVENPORT Accnic#: [id number] Status: REG REF Re06/15/09 Age/Sex: 39/F Unit#: [id number] Location: [facility] : [birth year] -- Specimen: [id number] SOUT Spec Date: 06/15/[address]: Mariam chan NP Spec Type: CYTOLOGY Received: 06/18/09-55 Copies to: SOURCE ECTOCERVICAL/ENDOCERVICAL Thin Prep with Reflex HPV Test PATIENT INFORMATION ACTUAL COLLECTION DATE: 06/15/09 LAST MENSTRUAL PERIOD: 05/18/09 ADEQUACY OF SPECIMEN Satisfactory for evaluation * Transformation zone component identified * DIAGNOSIS NEGATIVE FOR INTRAEPITHELIAL LESION OR MALIGNANCY * This Pap test was evaluated with the assistance of the ThinPrep Pap Test Imaging System. The Pap Smear is a screening test designed to aid in the detection of premalign ant and malignant conditions of the uterine cervix. It is not a diagnostic procedure a nd should not be used as the sole means of detecting cervical cancer. Both false- positiv e and false-negative reports do occur. Depending on your risk status, a Pap smear ibrahima uld be obtained and evaluated every one to three years. Initial evaluation performed by Kate LEVINE([facility]) 06/18/09 Final Interpretation electronically signed by: Kate LEVINE(AS[facility]) 06/19/09 0805 -- -- DEPARTMENT OF PATHOLOGY, [address] [place] [address] [facility] Permit #[id number] Ernie Darling M.D. Director Horacio Cerna M.D. Paste Worker Dir mayra -- 30 ---- RUN DATE: 08/06/07 [facility] NMI LIVE PAGE 1 RUN TIME: 1041 Specimen Inquiry RUN USER: INTERFACE [id number] SUZY DAVENPORT 37/F <REG REF 08/03> ([id number]) Beto Goldstein NP -- Specimen: [id number] SOUT Spec Date: 08/03/[address]: Mariam chan NP Spec Type: CYTOLOGY Received: 08/04/07-1108 Copies to: SOURCE ECTOCERVICAL/ENDOCERVICAL Thin Prep with Reflex HPV Test PATIENT INFORMATION ACTUAL COLLECTION DATE: 08/03/07 LAST MENSTRUAL PERIOD: 07/11/07 ADEQUACY OF SPECIMEN Satisfactory for evaluation * Transformation zone component identified * DIAGNOSIS NEGATIVE FOR INTRAEPITHELIAL LESION OR MALIGNANCY * This Pap test was evaluated with the assistance of the edupristinePrep Pap Test Imaging System. The Pap Smear is a screening test designed to aid in the detection of premalign ant and malignant conditions of the uterine cervix. It is not a diagnostic procedure a nd should not be used as the sole means of detecting cervical cancer. Both false- positive and false-negative reports do occur. Depending on your risk status, a Pap smear ibrahima uld be obtained and evaluated every one to three years. Final Interpretation electronically signed by: Kate LEVINE([facility]) 08/06/07 1040 -- -- DEPARTMENT OF PATHOLOGY, [address] [place] [address] [facility] Permit #[id number] Ernie Darling M.D. Director of [employer] -- 31 Anion gap measurement may be of limited value in the presence of any alkalosis, especially in a combined acid base disorder. . 32 Classification: Borderline High . 33 CALCULATED LDL APPROXIMATES THE VALUE OF A DIRECT LDL MEASUREMENT. Classification: Borderline High . 34 . A negative urine result for a female patient who is clinically suspected of having a chlamydial or gonococcal infection does not rule out the presence of C.trachomatis or N.gonorrhoeae in the urogenital tract. Testing of an endocervical specimen is recommended in such cases. As well, a negative urine result for N. gonorrhoeae from a female has a lower negative predictive value than does an endocervical swab. . 35 . A negative urine result for a female patient who is clinically suspected of having a chlamydial or gonococcal infection does not rule out the presence of C.trachomatis or N.gonorrhoeae in the urogenital tract. Testing of an endocervical specimen is recommended in such cases. As well, a negative urine result for N. gonorrhoeae from a female has a lower negative predictive value than does an endocervical swab. . 36 ---- RUN DATE: 06/26/06 [facility] LIVE PAGE 1 RUN TIME: 0806 Specimen Inquiry RUN USER: INTERFACE [id number] SUZY DAVENPORT 36/F <REG REF 06/22> ([id number]) RSP Katrina Hughes MD. -- Specimen: [id number] SOUT Spec Date: 06/22/[address]: Katrina lord MD Spec Type: CYTOLOGY Received: 06/23/06-1215 Copies to: SOURCE ECTOCERVICAL/ENDOCERVICAL Thin Prep with Reflex HPV Test PATIENT INFORMATION ACTUAL COLLECTION DATE: 06/22/06 ? NO POST MENOPAUSAL? No HYSTERECTOMY? No PREVIOUS ABNORMAL PAP SMEARS No ADEQUACY OF SPECIMEN Satisfactory for evaluation * Transformation zone component not identified * DIAGNOSIS NEGATIVE FOR INTRAEPITHELIAL LESION OR MALIGNANCY * The Pap Smear is a screening test designed to aid in the detection of premalign ant and malignant conditions of the uterine cervix. It is not a diagnostic procedure an d should not be used as the sole means of detecting cervical cancer. Both false-positive and false-negative reports do occur. Depending on your risk status, a Pap smear ibrahima uld be obtained and evaluated every one to three years. Signed Electronically signed Kate LEVINE([facility]) 06/26/06 -- -- DEPARTMENT OF PATHOLOGY, [address] [place] [address] [facility] Permit #[id number] John Barney II, M.D. Director Ernie SudLalit bear irector -- Encounters Type Date Location Provider Dx Diagnosis Office Visit 11/05/2018 Main Office Mariam Palmer, Z00.00 Encntr for general 8:45a VOLUNTEER PATIENT REPRESENTATIVE-C adult medical exam w/o abnormal findings Office Visit 07/26/2018 Main Office Andrew Villatoro Z12.31 Encntr screen 5:00p mammogram for malignant neoplasm of breast M26.602 Left temporomandibular joint disorder, unspecified Office Visit 07/02/2018 2:00p Main Office Mariam Bailey K57.32 Dvtrcli of lg int Storm, VOLUNTEER PATIENT REPRESENTATIVE-C w/o perforation or abscess w/o bleeding Office Visit 03/26/2018 3:45p Main Office Andrew Bosch01.90 Acute sinusitisIrving MD unspecified Office Visit 10/13/2017 10:30a Main Office Neil Carver J06.9 Acute upper III, VOLUNTEER PATIENT REPRESENTATIVE-C respiratory infection, unspecified Office Visit 11/20/2016 10:15a Main Office Andrew Dhillon.Rosemarie Acute sinusIrving grover MD unspecified Office Visit 09/09/2016 3:00p Main Office Hior Cunningham01.90 Acute sinusitis, VOLUNTEER PATIENT REPRESENTATIVE-C unspecified Office Visit 02/09/2016 9:30a Main Office Samia Wood K04.0 Pulplenore Cohn, RPrudencio Office Visit 11/07/2015 3:45p Main Office Andrew Villatoro MD Office Visit 10/09/2014 3:15p Main Office Mariam Bailey 788.1 Dysuria Storm, VOLUNTEER PATIENT REPRESENTATIVE-C 564.09 Constipation Other Office Visit 12/05/2013 4:45p Main Office Mariam Palmer, 381.04 Otitis Media VOLUNTEER PATIENT REPRESENTATIVE-C Allergic Serous Acute Office Visit 11/21/2013 4:45p Main Office Mariam Palmer, 599.0 UTI Urinary Tract VOLUNTEER PATIENT REPRESENTATIVE-C Infection Site Not Spec 719.42 Pain Joint Upper Arm 530.81 Esophageal Reflux 381.04 Otitis Media Allergic Serous Acute Office Visit 04/04/2013 4:30p Main Office Francia Hui, 372.00 Conjunctivitis Acute VOLUNTEER PATIENT REPRESENTATIVE-C Unspec Office Visit 07/12/2012 3:00p Main Office Francia Hui, 465.9 URI Upper VOLUNTEER PATIENT REPRESENTATIVE-C Respiratory Infections Acute Unspec Sites Office Visit 04/08/2012 9:00a Main Office Mariam Bailey V70.0 Examination General Storm, VOLUNTEER PATIENT REPRESENTATIVE-C Medical Routine AT Health Care Facility 477.9 Rhinitis Allergic Cause Unspec V77.91 Screening For Lipoid Disorders V72.62 Laboratory Exam Ordered as Part Of Routine General Med Exam V06.1 Rneqifvoat-Qiwdzxs-Xvsktnag Combined (DTaP) Office Visit 01/30/2012 9:15a Main Office Malgorzata Byrnes 477.9 Rhinitis Allergic Lalit Sanches Cause Unspec Office Visit 11/03/2011 2:45p Main Office Mariam Plamer, 477.9 Rhinitis Allergic VOLUNTEER PATIENT REPRESENTATIVE-C Cause Unspec 372.14 Conjunctivitis Chronic Allergic Other Office Visit 10/13/2011 2:00p Main Office Malgorzata Byrnes 477.9 Rhinitis Allergic Lalit Sanches Cause Unspec Office Visit 06/19/2011 2:45p Main Office Malgorzata Byrnes 599.0 UTI Urinary Tract Lalit Sanches Infection Site Not Spec Office Visit 06/15/2009 8:00a Main Office Mariam Palmer, V72.31 Routine Surveillance Analyst VOLUNTEER PATIENT REPRESENTATIVE-C Examination 278.00 Obesity Unspec V70.0 Examination General Medical Routine AT Health Care Facility V77.91 Screening For Lipoid Disorders V25.09 Contraceptive Management Other Office Visit 12/25/2008 3:45p Main Office Stella Thurston 461.0 Sinusitis Acute Sarah, F.N.P.C. Maxillary Office Visit 02/21/2008 4:15p Main Office Mariam Palmer, 692.9 Dermatitis Unspec VOLUNTEER PATIENT REPRESENTATIVE-C Cause Due To Spec Agents Other Office Visit 12/29/2007 11:45a Main Office Katrina Solano 724.5 Backache Unspec Lalit Hughes 783.1 Weight Gain Abnormal Office Visit 10/01/2007 11:00a Main Office Mariam Bailey 461.0 Sinusitis Acute Storm, VOLUNTEER PATIENT REPRESENTATIVE-C Maxillary Office Visit 09/27/2007 11:45a Main Office Mariam Bailey 487.8 Influenza W/ Other Storm, VOLUNTEER PATIENT REPRESENTATIVE-C Manifestations Office Visit 08/03/2007 8:00a Main Office Mariam Bailey V72.31 Routine Surveillance Analyst Storm, VOLUNTEER PATIENT REPRESENTATIVE-C Examination 388.70 Otalgia & Earache Unspec 278.00 Obesity Unspec V76.2 Screening Malignant Neoplasm Cervix Office Visit 06/22/2006 12:00p Main Office Katrina Solano V72.31 Routine Surveillance Analyst Lalit Hughes Examination V70.0 Examination General Medical Routine AT Health Care Facility 388.70 Otalgia & Earache Unspec V25.09 Contraceptive Management Other 305.1 Tobacco Use Disorder 782.1 Rash & Other Nonspec Skin Eruption Office Visit 02/23/2006 2:15p Main Office Dakota Hoover, 388.70 Otalgia & Earache M.DMitesh Unspec Plan of Treatment 02/02/2019 - Andrew Villatoro MDK57.32 Diverticulitis of large intestine without perforation or absNew Medication:Metronidazole 500 mg - take 1 tablet by mouth 3 times per day for 10 days for diverticulitisCipro 500 mg - take 1 tablet by mouth every 12 hours for 10 days for infectionComments:If her symptoms do not resolve quickly, she should do a course of Cipro and Flagyl.If she is having smoldering repeated episodes of diverticulitis, this is not something that should be ignored.She never had a follow-up colonoscopy following her initial serious episode of diverticulitis. She should see GI.Follow up:Refer to NELI91.8 Other hypertrophic disorders of the skinComments: She has a number of irritated acrochordons around her neck, armpits, etc. She will come back and wewill address them surgically.Follow up:return for [facility] [place]66.92 Otitis media, unspecified, left earComments:She has some serous effusion behind the left tympanic membrane. I do not see any sign of a bacterial infection. She will continue to use Flonase and allergy treatments and try to get the ear to drain.R87.820 Cervical low risk human papillomavirus ( HPV) Dna test positiComments:I misinterpreted the result as positive for HPV type 16, but on review I was able to discover its actually negtive. I informed her before she left about this error, we discussed it.Follow up:Cancel [facility] referral
[2019-02-21] MEDS ORDERED: NS 0.9% 1000 ML** 1,000 ML IV ONE (23:01)
--- NOTE | 2019-02-21 23:24 | ED ---
GI/ HPI - HPI Summary HPI Summary: 48 year old female presents with left lower quadrant pain for the past couple hours. She has history of diverticulitis and it feels same. She states has had diarrhea today. admits to nausea but no vomiting. No fevers. She denies any urinary symptoms. She states she took a dose of Cipro and Flagyl today that had for her diverticulitis in the past. She states she took some ibuprofen which helped with the pain. Pain does not radiate anywhere. denies any chest pressure or shortness of breath. No medical conditions. - History of Current Complaint Chief Complaint: EDAbdPain Time Seen by Provider: 02/21/19 22:55 Stated Complaint: PAIN LT SIDE /DIARRHEA PER PT Pain Intensity: 6 - Allergy/Home Medications Allergies/Adverse Reactions: Allergies Allergy/AdvReac Type Severity Reaction Status Date / Time Penicillins AdvReac Unknown Verified 02/21/19 22:34 Reaction Details Sulfa (Sulfonamide AdvReac Headache Verified 02/21/19 22:34 Antibiotics) PMH/Surg Hx/FS Hx/Imm Hx Endocrine/Hematology History: Denies: Hx Sickle Cell Disease Cardiovascular History: Denies: Hx Myocardial Infarction GI History: Denies: Hx Diverticulosis Sensory History: Denies: Hx Legally Blind, Hx Deafness Opthamlomology History: Denies: Hx Legally Blind Psychiatric History: Denies: Hx Autism - Cancer History Hx Chemotherapy: No Hx Radiation Therapy: No Infectious Disease History: No Infectious Disease History: Denies: Traveled Outside the [place] in Last 30 Days - Family History Known Family History: Positive: Cardiac Disease, Diabetes - Social History Alcohol Use: Occasionally Substance Use Type: Reports: None Smoking Status (MU): Never Smoked Tobacco Review of Systems Negative: Fever Negative: Chest Pain Negative: Shortness Of Breath Positive: Abdominal Pain, Diarrhea, Nausea. Negative: Vomiting All Other Systems Reviewed And Are Negative: Yes Physical Exam Triage Information Reviewed: Yes Vital Signs On Initial Exam: Initial Vitals Temp Pulse Resp BP Pulse Ox 98.6 F 78 16 145/66 100 02/21/19 22:32 02/21/19 22:32 02/21/19 22:32 02/21/19 22:32 02/21/19 22:32 Vital Signs Reviewed: Yes Appearance: Positive: Well-Appearing Skin: Positive: Warm, Dry Head/Face: Positive: Normal Head/Face Inspection Eyes: Positive: Normal, Conjunctiva Clear ENT: Positive: Pharynx normal Respiratory/Lung Sounds: Positive: Clear to Auscultation, Breath Sounds Present Cardiovascular: Positive: Normal, RRR Abdomen Description: Positive: Other: - tenderness in LLQ Bowel Sounds: Positive: Present Musculoskeletal: Positive: Normal Neurological: Positive: Normal Psychiatric: Positive: Normal Diagnostics - Vital Signs Vital Signs Temp Pulse Resp BP Pulse Ox 02/21/19 22:32 98.6 F 78 16 145/66 100 - Laboratory Result Diagrams: 02/21/19 23:20 02/21/19 23:20 Lab Statement: Any lab studies that have been ordered have been reviewed, and results considered in the medical decision making process. - CT abd CT Interpretation Completed By: Radiologist Summary of CT Findings: IMPRESSION: Acute perforated colonic diverticulitis at the junction of the distal. descending colon and proximal sigmoid colon in the left lower quadrant of the. abdomen, with a 1.6 cm x 1.6 cm x 1.3 cm intramural abscess in the posterior. wall of the proximal sigmoid colon, free air predominantly in the left lower. quadrant of the abdomen, and a small amount of portal venous gas in the. superior medial segment 4A of the left hepatic lobe. Re-Evaluation - Re-Evaluation First Eval Re-Evaluation Time: 00:53 Change: Worse Comment: pain worst, patient states can not take morphine, will try toradol Second Eval Re-Evaluation Time: 02:56 Change: Improved Comment: patient is heistant to take any pain meds, discussed will try dilaudid as did not like morphine in past. Third Eval Re-Evaluation Time: 03:20 Comment: patient not tachycardia, no peritoneal signs on exam. appears comfortable GIGU Course/Dx - Course Course Of Treatment: 48 year old female presents with left lower quadrant pain for the past couple hours. She has history of diverticulitis and it feels same. She states has had diarrhea today. admits to nausea but no vomiting. No fevers. She denies any urinary symptoms. She states she took a dose of Cipro and Flagyl today that had for her diverticulitis in the past. She states she took some ibuprofen which helped with the pain. Pain does not radiate anywhere. denies any chest pressure or shortness of breath. No medical conditions. On exam tenderness left lower quadrant. Afebrile. wbc 13. crp normal. urine shows uti. CT shows perforated diverticulitis with free air and abscess. started patient on cipro and flagyl due to PCN allergy. patient is feeling better after toradol. discussed with dr ozuna who will admit. - Diagnoses Differential Diagnoses - Female: Diverticulitis, Gastroenteritis (Viral), Urinary Tract Infection Provider Diagnoses: Perforation of intestine due to diverticulitis of gastrointestinal tract Discharge - Sign-Out/Discharge Documenting (check all that apply): Patient Departure - Discharge Plan Condition: Stable Disposition: ADMITTED TO [facility] Referrals: Mariam Palmer PREFITTER [Primary Care Provider] - - Billing Disposition and Condition Condition: STABLE Disposition: Admitted to [facility]
[2019-02-21 23:28] LABS: ABS Basophils 0.1 10^3/ul (0-0.2); ABS Eosinophils 0.4 10^3/ul (0-0.6); ABS Lymphocytes 1.7 10^3/ul (1.0-4.8); ABS Monocytes 0.6 10^3/ul (0-0.8); ABS Neutrophils 10.3 10^3/ul (1.5-7.7); Hematocrit 42 % (35-47); Hemoglobin 13.9 g/dL (12.0-16.0); Lymphocyte % 13.2 %; Mean Corpuscular HGB Conc 34 g/dL (31-36); Mean Corpuscular Hemoglobin 30 pg (27-31); Mean Corpuscular Volume 89 fL (80-97); Mean Platelet Volume 8.4 fL (7.4-10.4); Platelet Count 308 10^3/uL (150-450); Red Blood Count 4.64 10^6 /uL (3.70-4.87); Red Cell Distribution Width 14 % (10-15); White Blood Count 13.2 10^3/uL (3.5-10.8)
[2019-02-21 23:47] LABS: Albumin 4.3 g/dL (3.2-5.2); Albumin/Globulin Ratio 1.6 (1-3); BUN/Creatinine Ratio 14.8 (8-20); C Reactive Protein 6.04 mg/L (<8.01); Calcium 9.5 mg/dL (8.6-10.3); EGFR African American 90.9 (>60); EGFR Non-African American 75.2 (>60); Globulin 2.7 g/dL (2-4); Total Bilirubin 0.3 mg/dL (0.2-1.0)
[2019-02-22 00:12] LABS: Urine Appearance Cloudy; Urine Bacteria 2+ (Absent); Urine Bilirubin Negative (Negative); Urine Blood 1+ (Negative); Urine Color Straw; Urine Glucose Negative (Negative); Urine Ketones Negative (Negative); Urine Nitrite Negative (Negative); Urine Protein Negative (Negative); Urine Red Blood Cell 2+(6-10/hpf) (Absent); Urine Specific Gravity 1.004 (1.010-1.030); Urine Squamous Epithelial Cell Present (Absent); Urine Urobilinogen Negative (Negative); Urine White Blood Cell 3+(>20/hpf) (Absent)
[2019-02-22] MEDS ORDERED: Iohexol 300* (CONTRAST) 10 ML SDV IV ONE (00:23)
[2019-02-22] MEDS ORDERED: Ketorolac INJ* 30 MG/ML 1 ML VIAL IV PUSH ONE (00:53)
[2019-02-22] MEDS ORDERED: Ciprofloxacin 400MG IVPREMIX(* 400 MG/200 ML BAG IVPB ONE (02:52)
[2019-02-22] MEDS ORDERED: HYDROmorphone INJ1* 1 MG/ML SYRINGE IV SLOW PU ONE (02:52)
[2019-02-22] MEDS ORDERED: metroNIDAZOLE IV 500 MG/100ML* 500 MG/100 ML BAG IVPB ONE (02:53)
[2019-02-22] MEDS ORDERED: Ondansetron INJ* 2 MG/ML VIAL IV ONE (02:56)
[2019-02-22] MEDS ORDERED: NS 0.9% 1000 ML** 1,000 ML IV ONE ×2 (03:02→06:27)
[2019-02-22] MEDS: HYDROmorphone INJ1* 1 MG/ML SYRINGE IV SLOW PU PRN ×7 (05:47→23:52)
[2019-02-22] MEDS: Lactated Ringers 1000 ML Bag* 1,000 ML IV SCH ×3 (05:50→23:56)
--- NOTE | 2019-02-22 09:27 | HP ---
CC: Mariam Palmer NP, [facility] * HISTORY AND PHYSICAL: DATE OF ADMISSION: 02/22/19 CHIEF COMPLAINT: Left lower quadrant abdominal pain and diverticulitis. HISTORY OF PRESENT ILLNESS: Ms. Suzy Davenport is a 48-year-old woman without significant past medical history other than obesity, who presented to the emergency room early this morning with left lower quadrant abdominal discomfort. She has a history of diverticular disease and was treated with oral antibiotics as an outpatient for sigmoid diverticulitis in June 2018. At this time, she had presented to the emergency room and a CAT scan was obtained, which showed findings consistent with sigmoid diverticulitis as well as a few small bubbles of extraluminal air. She said she did well after this episode. She states that she has had several intermittent episodes of left lower quadrant abdominal pain over the past several months, which may last several days, but she has not been treated with antibiotics. More recently she said she has had some discomfort over the past week or so, may be longer, of some left lower quadrant pain, which she describes as pressure. Last night; however, after she returned home from work and ate a regular dinner , she developed some pressure in her lower abdomen mainly on the left, which she described as cramping and pressure. She had several episodes of loose nonbloody diarrhea. She had no generalized abdominal discomfort, fevers, shakes or chills. When pain persisted, she presented to the emergency room. She was noted to be afebrile with initial heart rate of 78. Blood pressure was 145/66. She refused pain medicine. She is noted to have a white blood cell count of 13,000 with slight increase in neutrophils. Her chemistry values and liver transaminases were all unremarkable and she had a lactic acid of 1.1 and C -reactive protein of 6.04. She underwent a CT scan of the abdomen and pelvis. I did review these images. This showed findings consistent with acute perforated colonic sigmoid colon diverticulitis at the junction of the distal descending colon and proximal sigmoid colon with a small 1.6 x 1.3 cm intramural abscess. There was free fluid around the site of the apparent perforation. There was a trace amount of free fluid noted as well as some very small bubbles in the mesentery. Also noted was 2 small bubbles of air in the portal venous system in the left hepatic lobe. This was difficult to see. There was no evidence of remote free air, with generalized free fluid or other acute abnormality. After being seen in surgical consultation, she has been admitted to the surgical floor for treatment of her perforated diverticulitis. She states that her pain is only in the left lower quadrant. She has not had generalized abdominal pain. She has no nausea. She has been having no difficulty urinating. She states she has never undergone a colonoscopy; however, she was scheduled to see a java front end web developer through her primary care provider referral and this is yet to be scheduled. She has no family history of colon cancer. PAST MEDICAL HISTORY: Unremarkable. PAST SURGICAL HISTORY: Laparoscopic cholecystectomy. MEDICATIONS: None. ALLERGIES: To PENICILLINS and SULFA. SOCIAL HISTORY: She is . She has 1 grown daughter. She is a remote smoker, but has not smoked in the last 10 years. She drinks alcohol on a very rare social basis. She denies use of illicit drugs. 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 REVIEW OF SYSTEMS: Cerebrovascular: No dizziness or visual disturbances. Cardiovascular: No chest pain, shortness of breath. Pulmonary: No wheezing or hemoptysis or asthma. GI: As per above. She gives no blood per rectum or melena. She has had no weight loss. Diverticular history as above. : No urgency or hematuria. PHYSICAL EXAMINATION GENERAL: She is a mildly obese woman, sitting upright in bed, appears to be in no apparent distress. She is awake, alert, and conversive, and quite pleasant. VITAL SIGNS: She is afebrile. Pulse rate of 85, blood pressure 105/61. HEENT: Her sclerae are anicteric. Oral mucosa is slightly dry. LUNGS: Clear to auscultation with normal respiratory effort. HEART: Regular rate and rhythm without murmurs, rubs, or gallops. ABDOMEN: Soft and nondistended. She has laparoscopic upper abdominal incisions without hernia. She had diminished bowel sounds throughout. She has tenderness in her left lower quadrant with some voluntary guarding and very localized peritoneal irritation. There is no generalized peritoneal irritation or discomfort and her abdomen is quite soft without tympany or distention. PSYCHIATRIC: She is awake, alert, and oriented x3. She has normal judgment and insight. LABORATORY DATA: Laboratory value as per above. Also, noted was a urinalysis that showed 3+ white cells, 2+ red cells, and 3+ leukocyte esterase with bacteria present. Her culture will be pending. IMPRESSION: Acute on chronic sigmoid diverticulitis with apparent perforation with localized extraluminal air as well as very small abscess. She has localized left lower quadrant abdominal pain and mild elevation of her white blood cell count, but a normal CRP. Also noted was a small foci of air apparent in the portal venous system of the left lobe of the liver, and this was quite small. I reviewed the findings with her in great detail. She had some slight tachycardia while in the emergency room and with her mild leukocytosis, she does achieve sepsis criteria. She gives a history of several days of abdominal discomfort with worsening yesterday and I suspect with the small abscess and the induration and thickening of the sigmoid colon that this perhaps has been a process going on for the last several days with a more acute on chronic presentation last night. She has no signs of generalized peritonitis and the portal venous air bubble is most likely from the perforation. At this point, I feel that we can attempt nonoperative management with IV antibiotics, bowel rest, and IV fluid resuscitation. The next 24 to 48 hours will be crucial and we will follow her clinical course carefully and if there is any deterioration in the clinical status or development of peritonitis, she will require laparotomy with colectomy and probable colostomy and I explained this to her. There also is the possibility of repeat CT scan to follow for abscess with subsequent percutaneous drainage as well. PLAN: 1. She will be admitted to surgical service at the short stay unit. 2. She will be kept n.p.o. 3. She has been started on ciprofloxacin and Flagyl as she is allergic to PENICILLINS. 4. Ice chips will be allowed. 5. Repeat laboratory values will be obtained in the morning. [id number]/[facility] #: [id number] [facility] MEDICAL CENTERPatricia
[2019-02-22] MEDS: metroNIDAZOLE IV 500 MG/100ML* 500 MG/100 ML BAG IVPB SCH ×2 (10:56→18:20)
[2019-02-22] MEDS: Ondansetron INJ* 2 MG/ML VIAL IV PRN (11:08)
[2019-02-22] MEDS: Ciprofloxacin 400MG IVPREMIX(* 400 MG/200 ML BAG IVPB SCH (15:48)
[2019-02-23] MEDS: metroNIDAZOLE IV 500 MG/100ML* 500 MG/100 ML BAG IVPB SCH ×3 (03:24→18:47)
[2019-02-23] MEDS: Ciprofloxacin 400MG IVPREMIX(* 400 MG/200 ML BAG IVPB SCH ×2 (04:47→16:30)
[2019-02-23 05:16] LABS: ABS Eosinophils 0.1 10^3/ul (0-0.6); ABS Lymphocytes 1.1 10^3/ul (1.0-4.8); ABS Monocytes 0.8 10^3/ul (0-0.8); Eosinophil % 1.2 %; Hematocrit 34 % (35-47); Hemoglobin 11.5 g/dL (12.0-16.0); Mean Corpuscular HGB Conc 34 g/dL (31-36); Mean Corpuscular Hemoglobin 30 pg (27-31); Mean Corpuscular Volume 90 fL (80-97); Mean Platelet Volume 8.5 fL (7.4-10.4); Platelet Count 227 10^3/uL (150-450); Red Cell Distribution Width 14 % (10-15)
[2019-02-23 05:48] LABS: BUN/Creatinine Ratio 15.9 (8-20); Calcium 8.3 mg/dL (8.6-10.3); EGFR African American 109.4 (>60); EGFR Non-African American 90.4 (>60); Potassium 3.6 mmol/L (3.5-5.0)
[2019-02-23] MEDS: HYDROmorphone INJ1* 1 MG/ML SYRINGE IV SLOW PU PRN ×4 (06:19→22:43)
--- NOTE | 2019-02-23 09:12 | PN ---
Progress Note - Progress Note Date of Service: 02/23/19 SOAP: Subjective: Feels better this morning, slept better and now with less LLQ pain Reduced pain meds last 12 hours No N/V, no flatus Ambulating in halls, voiding well Objective: Temp Pulse Resp BP Pulse Ox 98.5 F 73 14 102/55 94 02/23/19 07:29 02/23/19 07:29 02/23/19 07:29 02/23/19 07:29 02/23/19 07:29 Intake & Output 02/21/19 02/22/19 02/23/19 02/24/19 06:59 06:59 06:59 06:59 Intake Total 20 3235 Output Total 1550 Balance 20 1685 Weight 215 lb Intake: IV Fluids 2951 LR 1951 NS (0.9%) 1000 IVPB 104 ABX - FLAGYL 104 Oral 20 180 Output: Urine 1550 Other: Estimated Void Medium # Bowel Movements 0 # Voids 1 PEX: Comfortable Lungs clear Cor is RRR Abd is soft and slightly distended. Minimal bowel sounds. Tender in LLQ without mass, less discomfort, no generalized pain or peritoneal irritation. Ext without edema Laboratory Results - last 24 hr 02/23/19 02/23/19 04:46 04:46 WBC 12.0 H RBC 3.80 Hgb 11.5 L Hct 34 L MCV 90 MCH 30 MCHC 34 RDW 14 Plt Count 227 MPV 8.5 Neut % (Auto) 83.2 Lymph % (Auto) 9.0 [place] % (Auto) 6.3 Eos % (Auto) 1.2 Baso % (Auto) 0.3 Absolute Neuts (auto) 10.0 H Absolute Lymphs (auto) 1.1 Absolute Monos (auto) 0.8 Absolute Eos (auto) 0.1 Absolute Basos (auto) 0.0 Absolute Nucleated RBC 0.0 Nucleated RBC % 0.0 Sodium 136 Potassium 3.6 Chloride 106 Carbon Dioxide 26 Anion Gap 4 BUN 11 Creatinine 0.69 Est GFR ( Amer) 109.4 Est GFR (Non-Af Amer) 90.4 BUN/Creatinine Ratio 15.9 Glucose 110 H Calcium 8.3 L Assessment: Perforated sigmoid colon diverticulitis-improving with non-operative management. Leukocytosis Plan: Continue IV abx Ice chips Increase activity Care plan discussed with patient-observe for now, repeat CT if worsening pain or fever, elevated WBC Check labs in AM
[2019-02-23] MEDS: Lactated Ringers 1000 ML Bag* 1,000 ML IV SCH ×2 (09:21→18:47)
[2019-02-23] MEDS: Ondansetron INJ* 2 MG/ML VIAL IV PRN (18:08)
[2019-02-24] MEDS: Lactated Ringers 1000 ML Bag* 1,000 ML IV SCH ×3 (02:00→23:36)
[2019-02-24] MEDS: metroNIDAZOLE IV 500 MG/100ML* 500 MG/100 ML BAG IVPB SCH ×3 (03:23→20:12)
[2019-02-24] MEDS: HYDROmorphone INJ1* 1 MG/ML SYRINGE IV SLOW PU PRN (03:26)
[2019-02-24] MEDS: Ciprofloxacin 400MG IVPREMIX(* 400 MG/200 ML BAG IVPB SCH ×2 (04:45→16:08)
[2019-02-24 04:50] LABS: ABS Basophils 0.1 10^3/ul (0-0.2); ABS Eosinophils 0.1 10^3/ul (0-0.6); ABS Lymphocytes 1.1 10^3/ul (1.0-4.8); ABS Monocytes 0.5 10^3/ul (0-0.8); ABS Neutrophils 8.6 10^3/ul (1.5-7.7); Hematocrit 34 % (35-47); Hemoglobin 11.3 g/dL (12.0-16.0); Lymphocyte % 10.6 %; Mean Corpuscular HGB Conc 34 g/dL (31-36); Mean Corpuscular Hemoglobin 30 pg (27-31); Mean Corpuscular Volume 90 fL (80-97); Mean Platelet Volume 8.1 fL (7.4-10.4); Platelet Count 255 10^3/uL (150-450); Red Blood Count 3.75 10^6 /uL (3.70-4.87); Red Cell Distribution Width 14 % (10-15); White Blood Count 10.4 10^3/uL (3.5-10.8)
--- NOTE | 2019-02-24 11:46 | PN ---
Progress Note - Progress Note Date of Service: 02/24/19 SOAP: Subjective:less pain at rest;mild nausea,no vomiting;passed small stools and flatus [] Objective: Vital Signs Temp 98.2 F 02/24/19 07:40 Pulse 71 02/24/19 07:40 Resp 18 02/24/19 08:00 BP 97/54 02/24/19 07:40 Pulse Ox 94 02/24/19 07:40 Intake & Output 02/23/19 02/24/19 02/24/19 18:59 06:59 18:59 Intake Total 2376 1337 1125 Output Total 250 2800 550 Balance 2126 -1463 575 Intake: IV Fluids 1886 1097 909 LR 1886 1097 909 IVPB 430 216 ABX 430 ABX - CIPROFLOXACIN 216 Oral 60 240 Output: Urine 250 2800 550 Other: # Bowel Movements 0 0 1 Estimated Stool Amount Small Laboratory Results - last 24 hr 02/24/19 04:44 WBC 10.4 RBC 3.75 Hgb 11.3 L Hct 34 L MCV 90 MCH 30 MCHC 34 RDW 14 Plt Count 255 MPV 8.1 Neut % (Auto) 82.6 Lymph % (Auto) 10.6 [place] % (Auto) 5.0 Eos % (Auto) 1.0 Baso % (Auto) 0.8 Absolute Neuts (auto) 8.6 H Absolute Lymphs (auto) 1.1 Absolute Monos (auto) 0.5 Absolute Eos (auto) 0.1 Absolute Basos (auto) 0.1 Absolute Nucleated RBC 0.0 Nucleated RBC % 0.0 lungs:clear bilat;heart:RRR;abd:hypoactive bs,obese,soft;tender LLQ on palpation ,rates at "6",mild tenderness LUQ;ext:nontender calves [] Assessment:Hospital day #3 perforated sigmoid colon diverticulitis,improving on IV abx;using less pain med;WBC wnl;afebrile [] Plan:reviewed above with ;will try sips of clears today;pt updated with plan []
[2019-02-24] MEDS ORDERED: Acetaminophen ADULT LIQ* 650 MG/20.3 ML UDC PO PRN (11:55)
--- NOTE | 2019-02-24 17:26 | PN ---
Progress Note - Progress Note Date of Service: 02/24/19 SOAP: Subjective: She continues to feel better, had LATIF today Less abd pain, had several firm, small BM's Ambulating in halls No more N/V, tolerating some po Nurse noted slow heart rate-no CP, SOB or other symptoms Objective: Temp Pulse Resp BP Pulse Ox 98.7 F 48 16 90/58 96 02/24/19 15:21 02/24/19 15:21 02/24/19 15:21 02/24/19 15:21 02/24/19 15:21 PEX: Comfortable Lungs are clear Abd is soft and slightly distended. NABS throughout Very mild tenderness in LLQ without peritoneal irritation, no generalized abdominal pain EKG-Sinus bradycardia, rate 54, no other acute change Assessment: Sigmoid diverticulitis with perforation-improving Normal WBC Sinus bradycardia--asymptomatic-follow for now Plan: Continue present care IV abx Discussed with pt
[2019-02-24] MEDS: Ketorolac INJ* 30 MG/ML 1 ML VIAL IV PUSH PRN ×2 (17:36→23:37)
[2019-02-24] MEDS: Ondansetron INJ* 2 MG/ML VIAL IV PRN (21:15)
[2019-02-25] MEDS: metroNIDAZOLE IV 500 MG/100ML* 500 MG/100 ML BAG IVPB SCH ×2 (02:39→10:46)
[2019-02-25] MEDS: Ciprofloxacin 400MG IVPREMIX(* 400 MG/200 ML BAG IVPB SCH (03:41)
[2019-02-25 06:26] LABS: Albumin 3.1 g/dL (3.2-5.2); Albumin/Globulin Ratio 1.3 (1-3); BUN/Creatinine Ratio 14.1 (8-20); Calcium 8.5 mg/dL (8.6-10.3); EGFR Non-African American 78.5 (>60); Globulin 2.3 g/dL (2-4); Potassium 3.5 mmol/L (3.5-5.0); Total Bilirubin 0.3 mg/dL (0.2-1.0); Total Protein 5.4 g/dL (6.4-8.9)
[2019-02-25] MEDS: Lactated Ringers 1000 ML Bag* 1,000 ML IV SCH (07:13)
[2019-02-25 11:30] VITALS: BP 110/66
--- NOTE | 2019-02-25 13:38 | PN ---
Progress Note - Progress Note Date of Service: 02/25/19 SOAP: Subjective: Continues to feel better Tolerating po-had several BM's overnight Pain continues to improve No Sx's of CP or SOB Objective: Temp Pulse Resp BP Pulse Ox 97.7 F 62 18 110/66 99 02/25/19 11:19 02/25/19 12:40 02/25/19 11:19 02/25/19 11:19 02/25/19 11:19 Intake & Output 02/23/19 02/24/19 02/25/19 02/26/19 06:59 06:59 06:59 06:59 Intake Total 3235 3713 3655 1121 Output Total 1550 3050 750 200 Balance 5841 637 4399 921 Intake: IV Fluids 2951 2983 2099 1121 ABX 110 LR 1951 2983 2099 1011 NS (0.9%) 1000 IVPB 104 430 716 ABX 430 ABX - CIPROFLOXACIN 416 ABX - FLAGYL 104 300 Oral 180 300 840 Output: Urine 1550 3050 750 200 Other: Estimated Void Medium # Bowel Movements 0 0 0 Estimated Stool Amount Small # Voids 2 PEX: Comfortable Lungs are clear Abd is soft and non-distended. Mild tenderness in the LLQ without mass, rebound tenderness. Ext without edema Assessment: Sigmoid diverticulitis with perforation--improving Sinus bradycardia-intermittent and asymptomatic, follow for now. Plan: D/C home today on oral antibiotics Dietary consult prior to d/c Outpatient follow up Instructions given
== END 2019-02-25 13:03 | disposition home or self-care (01) | DRG 244 ==
LOC: ED 22:31 → SSU 02-22 03:22
PROVIDERS: ADMIT Surgery; ATTEND Surgery
DX: K57.20 Diverticulitis of large intestine with perforation and abscess without bleeding (principal); E66.9 Obesity, unspecified; R00.1 Bradycardia, unspecified; Z68.38 Body mass index [BMI] 38.0-38.9, adult; Z90.49 Acquired absence of other specified parts of digestive tract; Z88.0 Allergy status to penicillin; Z88.2 Allergy status to sulfonamides; Z87.891 Personal history of nicotine dependence; Z72.89 Other problems related to lifestyle; Z82.49 Family history of ischemic heart disease and other diseases of the circulatory system; Z83.3 Family history of diabetes mellitus
CPT/HCPCS: 36415; 74177; 80048; 80053; 81003; 81015; 83605; 83690; 85025; 86140; 87086; 93005; 99284; A9270-GY; J0744; J1170; J1885; J2405; J3490

== ENCOUNTER 2020-03-21 17:56 | Inpatient (IN) ==
[2020-03-21] MEDS ORDERED: NS 0.9% 1000 ml BAG 1,000 ML IV ONE ×2 (18:14→20:45)
[2020-03-21] MEDS ORDERED: Ondansetron 4 mg VIAL 2 MG/ML 2 ml VIAL IV ONE (18:19)
[2020-03-21 19:06] LABS: ABS Basophils 0.1 10^3/ul (0-0.2); ABS Eosinophils 0.3 10^3/ul (0-0.6); ABS Lymphocytes 1.5 10^3/ul (1.0-4.8); ABS Monocytes 0.8 10^3/ul (0-0.8); ABS Neutrophils 10.6 10^3/ul (1.5-7.7); Eosinophil % 2.1 %; Hematocrit 44 % (35-47); Hemoglobin 15.2 g/dL (12.0-16.0); Lymphocyte % 11.3 %; Mean Corpuscular HGB Conc 35 g/dL (31-36); Mean Corpuscular Hemoglobin 31 pg (27-31); Mean Corpuscular Volume 90 fL (80-97); Mean Platelet Volume 8.5 fL (7.4-10.4); Platelet Count 305 10^3/uL (150-450); Red Blood Count 4.87 10^6 /uL (3.70-4.87); Red Cell Distribution Width 13 % (10-15); White Blood Count 13.2 10^3/uL (3.5-10.8)
[2020-03-21 19:16] LABS: Urine Appearance Cloudy; Urine Bilirubin Negative (Negative); Urine Blood Negative (Negative); Urine Color Straw; Urine Glucose Negative (Negative); Urine Ketones Negative (Negative); Urine Nitrite Negative (Negative); Urine Protein Negative (Negative); Urine Specific Gravity 1.005 (1.010-1.030); Urine Urobilinogen Negative (Negative)
[2020-03-21 19:26] LABS: Albumin 4.5 g/dL (3.2-5.2); Albumin/Globulin Ratio 1.6 (1-3); BUN/Creatinine Ratio 15.6 (8-20); C Reactive Protein 35.1 mg/L (<8.01); EGFR African American 74.4 (>60); EGFR Non-African American 61.5 (>60); Globulin 2.9 g/dL (2-4); Total Bilirubin 0.7 mg/dL (0.2-1.0); Total Protein 7.4 g/dL (6.4-8.9)
[2020-03-21] MEDS ORDERED: HYDROmorphone 1 MG/1 ML SYRINGE IV SLOW PU ONE (19:50)
[2020-03-21] MEDS ORDERED: Iohexol 300 (CONTRAST) 10 ML SDV IV ONE (20:23)
[2020-03-21] MEDS ORDERED: Ciprofloxacin 400mg IVPREMIX 400 MG/200 ML BAG IVPB ONE (21:34)
[2020-03-21] MEDS ORDERED: metroNIDAZOLE IV 500 MG/100ML 500 MG/100 ML BAG IVPB ONE (21:35)
[2020-03-21] MEDS ORDERED: Ciprofloxacin 400mg IVPREMIX 400 MG/200 ML BAG IVPB SCH (23:45)
[2020-03-21] MEDS ORDERED: metroNIDAZOLE IV 500 MG/100ML 500 MG/100 ML BAG IVPB SCH (23:45)
[2020-03-21] MEDS ORDERED: Morphine 4 MG/ML VIAL (1 ml) IV PRN (23:52)
[2020-03-22] MEDS ORDERED: HYDROmorphone 1 MG/1 ML SYRINGE IV SLOW PU PRN (00:02)
[2020-03-22] MEDS ORDERED: HYDROmorphone 1 MG/1 ML SYRINGE IV SLOW PU ONE (00:52)
[2020-03-22] MEDS: NS 0.9% 1000 ml BAG 1,000 ML IV SCH ×2 (02:56→13:42)
[2020-03-22 05:46] LABS: ABS Basophils 0.1 10^3/ul (0-0.2); ABS Eosinophils 0.1 10^3/ul (0-0.6); ABS Lymphocytes 1.1 10^3/ul (1.0-4.8); ABS Monocytes 0.6 10^3/ul (0-0.8); ABS Neutrophils 10.7 10^3/ul (1.5-7.7); Eosinophil % 0.6 %; Hematocrit 37 % (35-47); Hemoglobin 13.2 g/dL (12.0-16.0); Mean Corpuscular HGB Conc 35 g/dL (31-36); Mean Corpuscular Hemoglobin 31 pg (27-31); Mean Corpuscular Volume 89 fL (80-97); Mean Platelet Volume 8.4 fL (7.4-10.4); Platelet Count 255 10^3/uL (150-450); Red Cell Distribution Width 13 % (10-15); White Blood Count 12.7 10^3/uL (3.5-10.8)
[2020-03-22 06:04] LABS: BUN/Creatinine Ratio 15.2 (8-20); Calcium 8.8 mg/dL (8.6-10.3); EGFR African American 93.2 (>60)
[2020-03-22] MEDS: Ondansetron 4 mg VIAL 2 MG/ML 2 ml VIAL IV PRN ×2 (07:34→16:00)
[2020-03-22] MEDS: metroNIDAZOLE IV 500 MG/100ML 500 MG/100 ML BAG IVPB SCH ×2 (07:40→16:02)
[2020-03-22] MEDS: Ciprofloxacin 400mg IVPREMIX 400 MG/200 ML BAG IVPB SCH ×2 (09:15→21:39)
[2020-03-22] MEDS ORDERED: HYDROmorphone 0.5 MG/0.5 ML SYRINGE IV SLOW PU ONE (23:31)
[2020-03-23] MEDS: Ondansetron 4 mg VIAL 2 MG/ML 2 ml VIAL IV PRN (00:02)
[2020-03-23] MEDS: metroNIDAZOLE IV 500 MG/100ML 500 MG/100 ML BAG IVPB SCH ×2 (00:21→07:41)
[2020-03-23] MEDS: NS 0.9% 1000 ml BAG 1,000 ML IV SCH ×2 (01:39→13:12)
[2020-03-23 08:36] LABS: Hematocrit 35 % (35-47); Hemoglobin 12.5 g/dL (12.0-16.0); Mean Corpuscular HGB Conc 35 g/dL (31-36); Mean Corpuscular Hemoglobin 32 pg (27-31); Mean Corpuscular Volume 90 fL (80-97); Mean Platelet Volume 8.3 fL (7.4-10.4); Platelet Count 253 10^3/uL (150-450); Red Blood Count 3.95 10^6 /uL (3.70-4.87); Red Cell Distribution Width 13 % (10-15); White Blood Count 8.1 10^3/uL (3.5-10.8)
[2020-03-23 08:57] LABS: Calcium 8.6 mg/dL (8.6-10.3); Potassium 3.7 mmol/L (3.5-5.0)
[2020-03-23 09:02] LABS: BUN/Creatinine Ratio 11.1 (8-20); EGFR African American 90.6 (>60); EGFR Non-African American 74.8 (>60)
[2020-03-23] MEDS: Ciprofloxacin 400mg IVPREMIX 400 MG/200 ML BAG IVPB SCH (09:58)
[2020-03-23] MEDS ORDERED: Famotidine IV 10 MG/ML 2 ml VIAL (20 mg) IV SLOW PU SCH (10:00)
[2020-03-23 14:11] VITALS: BP 114/68
== END 2020-03-23 15:00 | disposition home or self-care (01) | DRG 244 ==
LOC: ED 17:56 → MED 23:48
PROVIDERS: ADMIT Internal Medicine; ATTEND Internal Medicine

== ENCOUNTER 2022-07-15 05:17 | Inpatient (IN) ==
[2022-07-15 05:43] LABS: ABS Basophils 0.1 10^3/ul (0-0.2); ABS Eosinophils 0.3 10^3/ul (0-0.6); ABS Lymphocytes 1.7 10^3/ul (1.0-4.8); ABS Monocytes 0.6 10^3/ul (0-0.8); Eosinophil % 2.3 %; Hematocrit 42 % (35-47); Hemoglobin 14.2 g/dL (12.0-16.0); Lymphocyte % 14.8 %; Mean Corpuscular HGB Conc 34 g/dL (31-36); Mean Corpuscular Hemoglobin 30 pg (27-31); Mean Corpuscular Volume 88 fL (80-97); Mean Platelet Volume 8.7 fL (7.4-10.4); Platelet Count 253 10^3/uL (150-450); Red Blood Count 4.81 10^6 /uL (3.70-4.87); Red Cell Distribution Width 14 % (10-15); White Blood Count 11.7 10^3/uL (3.5-10.8)
[2022-07-15] MEDS ORDERED: fentaNYL 100 mcg/2 ml 50 MCG/ML VIAL IV ONE (06:07)
[2022-07-15] MEDS ORDERED: Lactated Ringers 1000 ml BAG 1,000 ML IV ONE (06:07)
[2022-07-15] MEDS ORDERED: Droperidol 5 MG/2 ML 2 ML VIAL IV ONE (06:07)
[2022-07-15] MEDS ORDERED: Piperacillin/Tazobac ADVAN 3.375 GM in NS 0.9% 100 ml BAG 100 ML IV ONE ×2 (06:09→11:00)
[2022-07-15] MEDS ORDERED: metroNIDAZOLE IV 500 MG/100ML 500 MG/100 ML BAG IVPB ONE (06:19)
[2022-07-15] MEDS ORDERED: Ciprofloxacin 400mg IVPREMIX 400 MG/200 ML BAG IVPB ONE (06:19)
[2022-07-15 06:26] LABS: ALT 28 U/L (7-52); Albumin 4.5 g/dL (3.2-5.2); Albumin/Globulin Ratio 1.9 (1-3); Alkaline Phosphatase 92 U/L (35-149); Blood Urea Nitrogen 20 mg/dL (6-24); C Reactive Protein 10.82 mg/L (<8.01); CO2 Carbon Dioxide 25 mmol/L (22-32); Calcium 9.7 mg/dL (8.6-10.3); Chloride 107 mmol/L (101-111); Globulin 2.4 g/dL (2-4); Glucose 106 mg/dL (70-100); Lipase 50 U/L (11.0-82.0); Sodium 138 mmol/L (135-145); Total Protein 6.9 g/dL (6.4-8.9); eGFR CKD-EPI 75.4 (>60)
[2022-07-15 06:36] LABS: Anion Gap 6 mmol/L (2-11)
[2022-07-15] MEDS ORDERED: Zosyn per Pharmacy NOTE FOLLOW UP SCH ×2 (07:00→10:00)
[2022-07-15] MEDS ORDERED: HYDROmorphone 0.5 MG/0.5 ML SYRINGE IV SLOW PU ONE (07:19)
[2022-07-15] MEDS ORDERED: Iohexol 350 (CONTRAST) 500 ML MDV IV ONE (08:03)
[2022-07-15 08:13] LABS: Urine Appearance Clear; Urine Bilirubin Negative (Negative); Urine Blood Negative (Negative); Urine Color Yellow; Urine Glucose Negative (Negative); Urine Ketones Negative (Negative); Urine Nitrite Negative (Negative); Urine Protein Negative (Negative); Urine Urobilinogen 0.2 (Negative) (Negative)
[2022-07-15] MEDS ORDERED: Ondansetron 4 mg VIAL 2 MG/ML 2 ml VIAL IV PRN (09:45)
[2022-07-15] MEDS: HYDROmorphone 1 MG/1 ML SYRINGE IV PRN ×3 (11:34→23:30)
[2022-07-15] MEDS: Lactated Ringers 1000 ml BAG 1,000 ML IV SCH ×2 (14:43→20:37)
[2022-07-15] MEDS: metroNIDAZOLE IV 500 MG/100ML 500 MG/100 ML BAG IVPB SCH (16:47)
[2022-07-15] MEDS: Ciprofloxacin 400mg IVPREMIX 400 MG/200 ML BAG IVPB SCH (18:24)
[2022-07-16] MEDS: metroNIDAZOLE IV 500 MG/100ML 500 MG/100 ML BAG IVPB SCH ×3 (00:56→17:34)
[2022-07-16] MEDS: Ciprofloxacin 400mg IVPREMIX 400 MG/200 ML BAG IVPB SCH ×2 (05:45→20:05)
[2022-07-16] MEDS: oxyCODONE/Acetamin 5/325 mg TAB PO PRN ×2 (05:54→11:51)
[2022-07-16 09:01] LABS: ABS Monocytes 0.6 10^3/ul (0-0.8); ABS Neutrophils 8.1 10^3/ul (1.5-7.7); Eosinophil % 0.5 %; Hematocrit 35 % (35-47); Hemoglobin 12.1 g/dL (12.0-16.0); Lymphocyte % 10.3 %; Mean Corpuscular HGB Conc 35 g/dL (31-36); Mean Corpuscular Hemoglobin 31 pg (27-31); Mean Corpuscular Volume 88 fL (80-97); Mean Platelet Volume 8.4 fL (7.4-10.4); Platelet Count 193 10^3/uL (150-450); Red Blood Count 3.94 10^6 /uL (3.70-4.87); Red Cell Distribution Width 14 % (10-15); White Blood Count 9.8 10^3/uL (3.5-10.8)
[2022-07-16 09:29] LABS: Calcium 8.5 mg/dL (8.6-10.3); Potassium 3.8 mmol/L (3.5-5.0); eGFR CKD-EPI 101.6 (>60)
[2022-07-16] MEDS: HYDROmorphone 1 MG/1 ML SYRINGE IV PRN (19:54)
[2022-07-17] MEDS: metroNIDAZOLE IV 500 MG/100ML 500 MG/100 ML BAG IVPB SCH ×2 (01:05→09:58)
[2022-07-17] MEDS: HYDROmorphone 1 MG/1 ML SYRINGE IV PRN (03:26)
[2022-07-17] MEDS: Ciprofloxacin 400mg IVPREMIX 400 MG/200 ML BAG IVPB SCH (05:27)
[2022-07-17 07:11] LABS: ABS Eosinophils 0.1 10^3/ul (0-0.6); ABS Lymphocytes 1.3 10^3/ul (1.0-4.8); ABS Monocytes 0.6 10^3/ul (0-0.8); ABS Neutrophils 7.8 10^3/ul (1.5-7.7); Eosinophil % 1.1 %; Hematocrit 35 % (35-47); Hemoglobin 12.2 g/dL (12.0-16.0); Lymphocyte % 12.9 %; Mean Corpuscular HGB Conc 35 g/dL (31-36); Mean Corpuscular Hemoglobin 30 pg (27-31); Mean Corpuscular Volume 88 fL (80-97); Mean Platelet Volume 8.7 fL (7.4-10.4); Platelet Count 187 10^3/uL (150-450); Red Cell Distribution Width 14 % (10-15); White Blood Count 9.8 10^3/uL (3.5-10.8)
[2022-07-17 07:29] LABS: C Reactive Protein 170.52 mg/L (<8.01); Calcium 8.4 mg/dL (8.6-10.3); Potassium 3.6 mmol/L (3.5-5.0); eGFR CKD-EPI 95.1 (>60)
[2022-07-17 14:47] VITALS: BP 105/69
== END 2022-07-17 17:25 | disposition home or self-care (01) | DRG 244 ==
LOC: EDHOLD 05:17 → ED 05:17 → EDHOLD 13:58 → MED 14:34
PROVIDERS: ADMIT Internal Medicine; ATTEND Internal Medicine